=== PATIENT | male | born 1975 | race Asian ===

== ENCOUNTER 2023-12-17 21:28 | Inpatient (IN) | payer SELFPAY ==
[2023-12-17] VITALS (8 sets, daily range): BP systolic 108–122; BP diastolic 57–71; PULSE 113–134; RESP 26–48; TEMP 38.2; O2SAT 69–99
--- NOTE | 2023-12-17 21:52 | ED_ITS ---
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 He denies IV drug use recent. He denies prior vaccination against COVID or flu, denies any known diagnosis of HIV. Related Data Home oxygen amount: none Allergies Allergy/AdvReac Type Severity Reaction Status Date / Time No Known Drug Allergies Allergy Verified 12/17/23 21:47 Review of Systems Review of Systems Narrative: In severe respiratory distress, unable to give history except for nodding yes and no's, history primarily from family at bedside Patient History Social History household members: friend(s) Smoking Status: Never smoker Substance Use Type: painkillers Exam Initial Vital Signs Initial Vital Signs: Vital Signs Temperature 100.8 F H 12/17/23 21:30 Pulse Rate 134 H 12/17/23 21:30 Respiratory Rate 48 H 12/17/23 21:30 Blood Pressure 111/57 L 12/17/23 21:30 Pulse Oximetry 69 L 12/17/23 21:30 Oxygen Delivery Method Room Air 12/17/23 21:30 Respiratory distress, speaking in words only, mostly nauseous and no to questions, but alert and cooperative HENMI Head: normal to inspection Ears: external ears normal and TM's normal bilaterally Nose: external nose normal and No nasal discharge Face and sinus: face symmetric Mouth: oral mucosae normal Eyes Eyelids: eyelids normal Conjunctivae: conjunctivae normal Sclera: sclerae normal Resp Other: Patient had respiratory distress, bibasilar crackles, poor air movement, no wheezing obvious, with use of accessory musculature intercostal and suprasternal, no grunting Cardio Other: Tachycardia, regular rhythm, fast, could not hear any murmurs GI Inspection: non-distended Palpation: No guarding and No tender Skin General: no rashes or lesions noted, No jaundice and No petechiae Neuro General: patient alert and no focal motor deficits Extrem General: full ROM, no clubbing, cyanosis or edema, no pedal edema and no calf tenderness Other: No antecubital or other injection sites obvious upper extremities, no antecubital or other swelling or redness upper extremities. Lower extremities without lesions, no peripheral lower edema Psych Other: Anxious appearing in context of respiratory distress Course Course Course Narrative: Possible sepsis with cough and crackles, respiratory distress, transitioned from face mask despite SVN albuterol 2 high-flow nasal cannula humidified, hypoxia noted on ABG but not currently in respiratory acidosis, maintaining airway. Chest radiograph with right greater than left infiltrates, blood culture sent, IV ceftriaxone and azithromycin initiated for community-acquired pneumonia. HIV test negative. White blood cell count 13226 noted, lactate normal. Hemoglobin 8.9. CMP with normal renal function, LFTs not markedly elevated. BNP 1500 elevated, in context of possible sepsis. Chest radiograph reading besides the infiltrates did not mention significant fluid overload, however given BNP elevation, will limit IV fluid bolus for now. Rhino virus positive on respiratory panel, other pathogens negative. Currently normotensive, no pressors needed at this time. We will contact Hospital regarding admission to ICU on high-flow nasal cannula. Patient agreeable to being admitted. Orders Ordered: Discontinued Medications Acetaminophen (Acetaminophen 325 Mg Tablet) 650 mg PO Q6H PRN PRN Reason: Fever/Mild Pain (1-3) Albuterol (Albuterol 2.5 Mg/3 Ml Neb (Adult)) 20 mg INH NOW ONE Stop: 12/17/23 21:52 Albuterol (Albuterol 2.5 Mg/3 Ml Neb (Adult)) 2.5 mg INH [id number] PRN PRN Reason: Shortness Of Breath Albuterol/Ipratropium (Albuterol/Ipratropium 3 Ml Ampul) 3 ml INH NOW ONE Stop: 12/17/23 21:53 Last Admin: 12/17/23 22:00 Dose: 3 ml Documented By: BALDO Ceftriaxone Sodium 2,000 mg/ (Sodium Chloride) 100 mls @ 200 mls/hr IV NOW ONE Stop: 12/17/23 21:46 Last Infusion: 12/17/23 22:57 Dose: Infused Documented By: Admin: 12/17/23 22:23 Dose: 200 mls/hr Documented By: DESTINEE Azithromycin 500 mg/ Dextrose 250 mls @ 250 mls/hr IV NOW ONE Stop: 12/17/23 21:50 Last Infusion: 12/17/23 23:48 Dose: Infused Documented By: Admin: 12/17/23 22:41 Dose: 250 mls/hr Documented By: DESTINEE Sodium Chloride (Normal Saline 0.9%) 1,428.81 mls @ 476.27 mls/hr 30 ml/kg infuse over 3 hr (1428.81 ml) IV NOW ONE Stop: 12/18/23 01:27 Last Infusion: 12/18/23 01:00 Dose: Infused Documented By: Admin: 12/17/23 22:40 Dose: 476.27 mls/hr Documented By: DESTINEE Azithromycin 500 mg/ Dextrose 250 mls @ 250 mls/hr IV Q24H TATA Ceftriaxone Sodium 1,000 mg/ (Sodium Chloride) 100 mls @ 200 mls/hr IV Q24H TATA Naloxone HCl (Naloxone 0.4 Mg/Ml Vial) 0.2 mg IV Q2MIN PRN PRN Reason: Opiate Reversal Pantoprazole Sodium (Pantoprazole 40 Mg Vial) 40 mg IV DAILY TATA Reevaluation(s) Reevaluation #1: [id number], Patient has less work of breathing on high-flow humidified nasal cannula oxygen support. Right greater than left basilar infiltrate on chest x-ray, blood cultures sent, IV ceftriaxone/azithromycin given for community-acquired pneumonia coverage. Some IV fluids were initiated, BNP 1500 noted, we did not give the full 30 per kilo fluid bolus due to possible fluid overload concerns. On imaging his heart did not look particularly enlarged, no peripheral edema. White blood cell count 86149 but lactate not elevated. Patient requiring considerable respiratory support, consider admission, they would like to go home, I am very worried that he would decompensate rapidly, increased risk of recurrent or worsening respiratory distress, even . He agrees to admission, will contact hospitalist Reevaluation #2: 12/18/23 @0020. Case discussed with hospitalist Dr. Narayan, accepts patient for admission to ICU on HFNJ Vital Signs Vital signs: Vital Signs - 8 hr 12/17/23 21:30 12/17/23 21:48 12/17/23 22:00 Temperature 100.8 F H Pulse Rate 134 H 132 H 126 H Respiratory Rate 48 H 30 H 34 H Blood Pressure 111/57 L Pulse Oximetry 69 L 94 98 Oxygen Delivery Method Room Air Aerosol Mask Oxygen Flow Rate 8 12/17/23 22:20 Temperature Pulse Rate 124 H Respiratory Rate 30 H Blood Pressure Pulse Oximetry 95 Oxygen Delivery Method Oxygen Flow Rate MDM - SOB/Dyspnea Differential Diagnosis Differential diagnosis: Likely acute exacerbation of chronic obstructive airways disease, congestive heart failure, community acquired pneumonia, asthma with exacerbation, pulmonary embolism and other Lab Data 12/17/23 21:50 12/17/23 21:50 Labs: Lab Results 12/17/23 12/17/23 12/17/23 Range/Units 21:49 21:50 21:55 WBC 22.8 H (4.5-11.0) X10^3/uL RBC 3.68 L (4.5-5.9) X10^6/uL Hgb 8.9 L (13.5-17.5) g/dL Hct 28.5 L (41-53) % MCV 77.6 L (80-100) fL MCH 24.1 L (26-34) PG MCHC 31.1 (30-36) % RDW 19.7 H (11.6-14.8) % Plt Count 523 H (150-400) X10^3/uL Neut % (Auto) Not Reportable Lymph % (Auto) Not Reportable [place] % (Auto) Not Reportable Eos % (Auto) Not Reportable Baso % (Auto) Not Reportable Lymph # (Auto) Not Reportable [place] # (Auto) Not Reportable Baso # (Auto) Not Reportable Total Counted 100 Seg Neutrophils % 67.0 (38-70) % Band Neutrophils % 16.0 H (3-7) % Lymphocytes % (Manual) 13.0 L (25-45) % Monocytes % (Manual) 2.0 (2-11) % Basophils % (Manual) 1.0 (0-1) % Metamyelocytes % 1.0 H (-0) % Neutrophils # (Manual) 75730 H (7932-5587) /uL RBC Morphology See below Anisocytosis 1+ H Microcytosis 1+ H Target Cells 1+ H ABG Sample Site Right radial ABG pH 7.44 (7.35-7.45) ABG pCO2 47.6 H (35-45) mmHg ABG pO2 63 L (80-100) mmHg ABG HCO3 33 H (23-27) mmol/L ABG Total CO2 34 H (23-27) mmol/L ABG O2 Saturation 92 L (95-100) % ABG Base Excess 8.0 H (-2-3) mmol/L FiO2 100 Sodium 134 L (137-145) mmol/L Potassium 4.5 (3.4-5.1) mmol/L Chloride 98 (98-107) mmol/L Carbon Dioxide 33 H (22-32) mmol/L BUN 14 (9-20) mg/dL Creatinine 0.56 L (0.66-1.25) mg/dL Estimated GFR > 60 (>60) mL/min BUN/Creatinine Ratio 25.0 H (6-22) Glucose 115 H (70-100) mg/dL Lactate 1.7 (0.7-2.1) mmol/L Calcium 8.2 L (8.4-10.2) mg/dL Total Bilirubin 0.6 (0.2-1.3) mg/dL AST 40 (17-59) IU/L ALT 26 (<50) IU/L Alkaline Phosphatase 201 H (38-126) U/L Total Creatine Kinase 31 L (55-170) U/L Troponin I < 0.012 (0.01-0.034) ng/mL NT-Pro-B Natriuret Pep 1550 H (<125) pg/mL Total Protein 8.4 H (6.3-8.2) g/dL Albumin 3.1 L (3.5-5.0) g/dL Globulin 5.3 H (1.7-4.1) g/dL Albumin/Globulin Ratio 0.6 L (1.0-2.8) Procalcitonin 0.41 (<0.5) ng/mL Urine Color Urine Appearance Urine pH (4.5-8.0) Ur Specific [place] (1.000-1.035) Urine Protein (Negative) Urine Glucose (UA) (Negative) g/dL Urine Ketones (NEGATIVE) Urine Occult Blood (Negative) Urine Nitrate (Negative) Urine Bilirubin (NEGATIVE) Urine Urobilinogen (0.2) E.U./dL Ur Leukocyte Esterase (NEGATIVE) Urine RBC (0-5/HPF) Urine WBC (0-5/HPF) Ur Squamous Epith Cells (0-5/HPF) Urine Bacteria (None) Ur Culture Indicated? Vol Urine Centrifuged U Opiates 300ng/mL cut (Negative) Ur Oxycodone Screen (Negative) Urine Methadone Screen (Negative) Ur Barbiturates Screen (Negative) U Tricyclic Antidepress (Negative) Ur Phencyclidine Scrn (Negative) Ur Amphetamines Screen (Negative) U Methamphetamines Scrn (Negative) Ur MDMA Scrn (Ecstasy) (Negative) U Benzodiazepines Scrn (Negative) Urine Cocaine Screen (Negative) U Marijuana (THC) Screen (Negative) Urine Specific [place] (Normal) Ethyl Alcohol < 10 ( - 10) mg/dL Ur Creatinine (Normal) Chlamy pneumoniae PCR Not detected (Not Detect) Adenovirus (PCR) Not detected (Not Detect) B.parapertussis DNA PCR Not detected (Not Detecte) Coronavirus OC43 (PCR) Not detected (Not Detect) Coronavirus HKU1 (PCR) Not detected (Not Detect) Coronavirus 229E (PCR) Not detected (Not Detect) SARS-CoV-2 (PCR) Not detected (Not Detecte) Coronavirus NL63 (PCR) Not detected (Not Detect) HIV 1&2 Ab/P24 Ag 4thGn Negative (NEGATIVE) Human Metapneumovir PCR Not detected (Not Detect) Influenza Type A (PCR) Not detected (Not Detect) Influenza Type B (PCR) Not detected (Not Detect) M. pneumoniae (PCR) Not detected (Not Detect) Parainfluenza 1 (PCR) Not detected (Not Detect) Parainfluenza 2 (PCR) Not detected (Not Detect) Parainfluenza 3 (PCR) Not detected (Not Detect) Parainfluenza 4 (PCR) Not detected (Not Detect) RSV (PCR) Not detected (Not Detect) Entero/Rhino (PCR) Detected H (Not Detect) 12/17/23 12/17/23 Range/Units 22:10 22:10 WBC (4.5-11.0) X10^3/uL RBC (4.5-5.9) X10^6/uL Hgb (13.5-17.5) g/dL Hct (41-53) % MCV (80-100) fL MCH (26-34) PG MCHC (30-36) % RDW (11.6-14.8) % Plt Count (150-400) X10^3/uL Neut % (Auto) Lymph % (Auto) [place] % (Auto) Eos % (Auto) Baso % (Auto) Lymph # (Auto) [place] # (Auto) Baso # (Auto) Total Counted Seg Neutrophils % (38-70) % Band Neutrophils % (3-7) % Lymphocytes % (Manual) (25-45) % Monocytes % (Manual) (2-11) % Basophils % (Manual) (0-1) % Metamyelocytes % (-0) % Neutrophils # (Manual) (1143-8980) /uL RBC Morphology Anisocytosis Microcytosis Target Cells ABG Sample Site ABG pH (7.35-7.45) ABG pCO2 (35-45) mmHg ABG pO2 (80-100) mmHg ABG HCO3 (23-27) mmol/L ABG Total CO2 (23-27) mmol/L ABG O2 Saturation (95-100) % ABG Base Excess (-2-3) mmol/L FiO2 Sodium (137-145) mmol/L Potassium (3.4-5.1) mmol/L Chloride (98-107) mmol/L Carbon Dioxide (22-32) mmol/L BUN (9-20) mg/dL Creatinine (0.66-1.25) mg/dL Estimated GFR (>60) mL/min BUN/Creatinine Ratio (6-22) Glucose (70-100) mg/dL Lactate (0.7-2.1) mmol/L Calcium (8.4-10.2) mg/dL Total Bilirubin (0.2-1.3) mg/dL AST (17-59) IU/L ALT (<50) IU/L Alkaline Phosphatase (38-126) U/L Total Creatine Kinase (55-170) U/L Troponin I (0.01-0.034) ng/mL NT-Pro-B Natriuret Pep (<125) pg/mL Total Protein (6.3-8.2) g/dL Albumin (3.5-5.0) g/dL Globulin (1.7-4.1) g/dL Albumin/Globulin Ratio (1.0-2.8) Procalcitonin (<0.5) ng/mL Urine Color Yellow Urine Appearance Clear Urine pH 8.0 Normal (4.5-8.0) Ur Specific [place] 1.015 (1.000-1.035) Urine Protein 1+ H (Negative) Urine Glucose (UA) Negative (Negative) g/dL Urine Ketones Negative (NEGATIVE) Urine Occult Blood Negative (Negative) Urine Nitrate Negative (Negative) Urine Bilirubin Negative (NEGATIVE) Urine Urobilinogen 1.0 (0.2) E.U./dL Ur Leukocyte Esterase Negative (NEGATIVE) Urine RBC 0-1/hpf (0-5/HPF) Urine WBC None seen (0-5/HPF) Ur Squamous Epith Cells 0-1 /hpf (0-5/HPF) Urine Bacteria None seen (None) Ur Culture Indicated? Cult not indicated Vol Urine Centrifuged 10ml (spun) U Opiates 300ng/mL cut Negative (Negative) Ur Oxycodone Screen Negative (Negative) Urine Methadone Screen Negative (Negative) Ur Barbiturates Screen Negative (Negative) U Tricyclic Antidepress Negative (Negative) Ur Phencyclidine Scrn Negative (Negative) Ur Amphetamines Screen Positive H (Negative) U Methamphetamines Scrn Positive H (Negative) Ur MDMA Scrn (Ecstasy) Negative (Negative) U Benzodiazepines Scrn Negative (Negative) Urine Cocaine Screen Negative (Negative) U Marijuana (THC) Screen Negative (Negative) Urine Specific [place] Normal (Normal) Ethyl Alcohol ( - 10) mg/dL Ur Creatinine Normal (Normal) Chlamy pneumoniae PCR (Not Detect) Adenovirus (PCR) (Not Detect) B.parapertussis DNA PCR (Not Detecte) Coronavirus OC43 (PCR) (Not Detect) Coronavirus HKU1 (PCR) (Not Detect) Coronavirus 229E (PCR) (Not Detect) SARS-CoV-2 (PCR) (Not Detecte) Coronavirus NL63 (PCR) (Not Detect) HIV 1&2 Ab/P24 Ag 4thGn (NEGATIVE) Human Metapneumovir PCR (Not Detect) Influenza Type A (PCR) (Not Detect) Influenza Type B (PCR) (Not Detect) M. pneumoniae (PCR) (Not Detect) Parainfluenza 1 (PCR) (Not Detect) Parainfluenza 2 (PCR) (Not Detect) Parainfluenza 3 (PCR) (Not Detect) Parainfluenza 4 (PCR) (Not Detect) RSV (PCR) (Not Detect) Entero/Rhino (PCR) (Not Detect) ABG Data ABG results: On face mask from EMS ABG was drawn at 10 L. PH 7.443, pCO2 47.6, PO2 63, HCo3 32.5, base excess 8, 92% saturation Attestation: I personally reviewed and interpreted this ABG as follows: Interpretation: Hypoxemia without CO2 retention at this time ECG Data Attestation: I personally reviewed and interpreted this ECG as follows: Interpretation: Sinus tachycardia with rate 126, significant artifact precordial leads due to movement. With other leads there is T-wave inversion noted in leads [address] segment elevation in available leads. MDM Narrative Medical decision making narrative: Left AMA DISCHARGE, shortly after being accepted for admission from hospitalist while still in the ED. Patient strongly warned he had significant hypoxia and oxygen requirement, at increased risk for further decompensation, causing brain or other injuries, loss of independence, even . Friends at bedside were also urging patient to stay, however he persisted in his desire to be discharged off of oxygen against medical advice, shortly after having been admitted by the hospitalist. He was able to express understanding of risks of refusal, including injury and even . He did have weaning off of oxygen to room air and did desaturate but nonetheless even despite ambulation trial, still persisted in his desire to be discharged against medical advice. Critical Care Time Critical Care Time Critical Care Time: Yes Total Critical Care Time: 45 Attestation: The high probability of a clinically significant, sudden or life threatening deterioration of the [cardiopulmonary] system(s) required my full and direct attention, intervention and personal management. The aggregate critical care time was [45] minutes. This time is in addition to time spent performing reported procedures but includes the following: [x] Data Review and interpretation [x] Patient assessment and monitoring of vital signs [x] Documentation [x] Medication orders and management Discharge Plan Departure Patient Disposition: Left Against Medical Advice Clinical Impression: Pneumonia, Hypoxia, Acute respiratory distress, Rhinovirus infection
[2023-12-17] MEDS: ALBUTEROL/IPRATROPIUM 3 ML AMPUL INH (22:00)
[2023-12-17] MEDS: cefTRIAXone 2,000 MG in SODIUM CHLORIDE 0.9% 100 ML 200 MG IV (22:23)
[2023-12-17 22:26] LABS: Appearance Urine UA CLEAR; Bilirubin Urine UA NEGATIVE (NEGATIVE); Color Urine UA YELLOW; Glucose Urine UA NEGATIVE (Negative); Ketones Urine UA NEGATIVE (NEGATIVE); Leukocyte Esterase Urine UA NEGATIVE (NEGATIVE); Nitrite Urine UA NEGATIVE (Negative); Occult Blood Urine UA NEGATIVE (Negative); Protein Urine UA 1+ (Negative); Specific Gravity Urine UA 1.015 (1.000-1.035)
[2023-12-17 22:33] LABS: UR Morphine/Opiate cutoff 300 Negative (Negative); Ur Creatinine Normal (Normal); Ur Specific Gravity Normal (Normal); Urine Cocaine Negative (Negative); Urine Methamphetamines Positive (Negative); Urine pH Normal (Normal)
[2023-12-17 22:34] LABS: Urine Amphetamines Positive (Negative); Urine Barbiturates Negative (Negative); Urine Benzodiazepines Negative (Negative); Urine MDMA Negative (Negative); Urine Methadone Negative (Negative); Urine Oxycodone Negative (Negative); Urine Phencyclidine Negative (Negative); Urine Tetrahydrocannabinol Negative (Negative); Urine Tricyclic Antidepressant Negative (Negative)
--- NOTE | 2023-12-17 22:35 | DI.RAD.S_ITS ---
PROCEDURE: XR CHEST 1V INDICATIONS: sob/cough TECHNIQUE: One view of the chest was acquired. COMPARISON: None. FINDINGS: Surgical changes and devices: None. Lungs and pleura: Moderate consolidations in the mid and lower lungs, greater on the right. Possible trace pleural effusions. Mediastinum: Borderline cardiomegaly Bones and chest wall: Unremarkable IMPRESSION: Right greater than left mid and lower lung consolidations suspicious for infection. There may be superimposed edema. Possible trace effusions. Consider future imaging surveillance to assess for resolution. Borderline cardiomegaly. Dictated by: Drake Godinez M.D. on 12/17/2023 at 22:59 Approved by: Drake Godinez M.D. on 12/17/2023 at 23:00
[2023-12-17 22:37] LABS: Allen Test for ABG Passed? Yes, Passed; Blood Gas Collection Site Right Radial; Fractionated Inspired Oxygen 100; HCO3 ABG 33 mmol/L (23-27); Oxygen Saturation ABG 92 % (95-100); PCO2 ABG 47.6 mmHg (35-45); PO2 ABG 63 mmHg (80-100); TCO2 ABG 34 mmol/L (23-27); pH ABG 7.44 (7.35-7.45)
[2023-12-17 22:38] LABS: Bacteria Urine None Seen; RBC Urine 0-1/HPF (0-5/HPF); Squamous Epithelial Cell Urine 0-1 /HPF (0-5/HPF); Urine Volume 10mL (spun); WBC Urine None Seen (0-5/HPF)
[2023-12-17 22:39] LABS: Culture Indicated Urine Cult Not Indicated
[2023-12-17] MEDS: SODIUM CHLORIDE 0.9% 476.27 ML IV (22:40)
[2023-12-17] MEDS: AZITHROMYCIN 500 MG in DEXTROSE 5% IN WATER 250 ML 250 MG IV (22:41)
[2023-12-17 22:42] LABS: Ethanol (ETOH) < 10 mg/dL; Lactate (Lactic Acid) 1.7 mmol/L (0.7-2.1)
[2023-12-17 22:43] LABS: Alanine Aminotransferase 26 IU/L (<50); Albumin 3.1 g/dL (3.5-5.0); Albumin Globulin Ratio 0.6 (1.0-2.8); Alkaline Phosphatase 201 U/L (38-126); Aspartate Aminotransferase 40 IU/L (17-59); Bilirubin Total 0.6 mg/dL (0.2-1.3); Blood Urea Nitrogen 14 mg/dL (9-20); Calcium 8.2 mg/dL (8.4-10.2); Carbon Dioxide 33 mmol/L (22-32); Chloride 98 mmol/L (98-107); Creatine Kinase 31 U/L (55-170); Estimated Glomerular Filt Rate > 60 mL/min (>60); Globulin 5.3 g/dL (1.7-4.1); Glucose 115 mg/dL (70-100); HEMOLYSIS < 15 (0-50); Potassium 4.5 mmol/L (3.4-5.1); Sodium 134 mmol/L (137-145); Total Protein 8.4 g/dL (6.3-8.2)
[2023-12-17 22:52] LABS: Hematocrit 28.5 % (41-53); Hemoglobin 8.9 g/dL (13.5-17.5); Mean Corpuscular HGB Conc 31.1 % (30-36); Mean Corpuscular Hemoglobin 24.1 PG (26-34); Mean Corpuscular Volume 77.6 fL (80-100); NT-proBNP (BNP-Adult 18+) 1550 pg/mL (<125); Platelet Count 523 X10^3/uL (150-400); Red Blood Cell Count 3.68 X10^6/uL (4.5-5.9); Red Cell Distribution Width 19.7 % (11.6-14.8); White Blood Cell Count 22.8 X10^3/uL (4.5-11.0)
[2023-12-17 22:54] LABS: Add Manual Diff / Slide Review YES
[2023-12-17 22:55] LABS: Troponin I < 0.012 ng/mL (0.01-0.034)
[2023-12-17 22:59] LABS: Procalcitonin 0.41 ng/mL (<0.5)
[2023-12-17 23:15] LABS: Adenovirus Not Detected (Not Detect); B. parapertussis Not Detected (Not Detecte); Bordetella pertussis Not Detected (Not Detect); Chlamydophila pneumoniae Not Detected (Not Detect); Coronavirus 229E Not Detected (Not Detect); Coronavirus HKU1 Not Detected (Not Detect); Coronavirus NL 63 Not Detected (Not Detect); Coronavirus OC43 Not Detected (Not Detect); Human Metapneumovirus Not Detected (Not Detect); Human Rhinovirus/Enterovirus Detected (Not Detect); Influenza A Not Detected (Not Detect); Influenza B Not Detected (Not Detect); Mycoplasma pneumoniae Not Detected (Not Detect); Parainfluenza Virus 1 Not Detected (Not Detect); Parainfluenza Virus 2 Not Detected (Not Detect); Parainfluenza Virus 3 Not Detected (Not Detect); Parainfluenza Virus 4 Not Detected (Not Detect); Respiratory Syncytial Virus Not Detected (Not Detect); SARS- CoV-2 Not Detected (Not Detecte)
[2023-12-17 23:16] LABS: Anisocytosis 1+; Neutrophils Absolute Manual 18924 /uL (3000-5900); Total Cells Counted 100
[2023-12-17 23:17] LABS: Microcytosis 1+; Target Cells 1+
[2023-12-17 23:27] LABS: HIV 1 & 2 Ab/Ag 4th Gen Combo NEGATIVE (NEGATIVE)
[2023-12-18] VITALS: BP 125/54; PULSE 111; RESP 32; O2SAT 98
[2023-12-18 00:30] VITALS: BP 119/57; PULSE 109; RESP 27; O2SAT 97
[2023-12-18 00:42] VITALS: PULSE 109; RESP 24; O2SAT 97
[2023-12-18 01:00] VITALS: BP 118/63; PULSE 108; O2SAT 98
[2023-12-18 01:03] VITALS: BP 113/55; PULSE 108; O2SAT 98
[2023-12-18 01:12] VITALS: BP 108/59; PULSE 110; O2SAT 92
--- NOTE | 2023-12-18 01:14 | P.HP_ITS ---
History of Present Illness History of Present Illness Date Patient Seen: 12/18/23 Time Patient Seen: 02:00 Chief complaint: vomiting, fever Narrative: 47 y/o presented to ED in severe respiratory distress requiring highflow oxygen. Positive for rhinovirus, CXR with b/l infiltrates. Started on empiric abx in the ED, bronchodilators and then, prior to seeing him, left ED AMA. Meds Home Medications and Allergies Allergies Allergy/AdvReac Type Severity Reaction Status Date / Time No Known Drug Allergies Allergy Verified 12/17/23 21:47 Review of Systems Review of Systems Narrative: Unavailable Exam Vital Signs (past 8 hours): - 12/17/23 21:30 12/17/23 21:48 12/17/23 22:00 Temperature 100.8 F H Pulse Rate 134 H 132 H 126 H Respiratory Rate 48 H 30 H 34 H Blood Pressure 111/57 L Pulse Oximetry 69 L 94 98 Oxygen Delivery Method Room Air Aerosol Mask Oxygen Flow Rate 8 12/17/23 22:00 12/17/23 22:01 12/17/23 22:01 Temperature Pulse Rate 126 H 126 H Respiratory Rate 39 H 27 H Blood Pressure 108/58 L Pulse Oximetry 99 99 Oxygen Delivery Method Oxygen Flow Rate 12/17/23 22:20 12/17/23 22:30 12/17/23 22:30 Temperature Pulse Rate 124 H 122 H Respiratory Rate 30 H 26 H Blood Pressure 108/66 Pulse Oximetry 95 95 Oxygen Delivery Method Oxygen Flow Rate 12/17/23 23:00 12/17/23 23:00 12/17/23 23:30 Temperature Pulse Rate 116 H 113 H Respiratory Rate 28 H 32 H Blood Pressure 122/71 Pulse Oximetry 97 97 Oxygen Delivery Method Oxygen Flow Rate 12/17/23 23:30 12/18/23 00:00 12/18/23 00:00 Temperature Pulse Rate 111 H Respiratory Rate 32 H Blood Pressure 120/62 125/54 L Pulse Oximetry 98 Oxygen Delivery Method Oxygen Flow Rate 12/18/23 00:30 12/18/23 00:30 12/18/23 01:00 Temperature Pulse Rate 109 H 108 H Respiratory Rate 27 H Blood Pressure 119/57 L Pulse Oximetry 97 98 Oxygen Delivery Method Oxygen Flow Rate 12/18/23 01:00 Temperature Pulse Rate Respiratory Rate Blood Pressure 118/63 Pulse Oximetry Oxygen Delivery Method Oxygen Flow Rate Oxygen Delivery Method Aerosol Mask Oxygen Flow Rate 8 Narrative Exam Narrative: unavailable, left AMA Objective Labs 12/17/23 21:50 12/17/23 21:50 Labs: Laboratory Results - last 24 hr 12/17/23 12/17/23 12/17/23 21:49 21:50 21:55 WBC 22.8 H RBC 3.68 L Hgb 8.9 L Hct 28.5 L MCV 77.6 L MCH 24.1 L MCHC 31.1 RDW 19.7 H Plt Count 523 H Neut % (Auto) Not Reportable Lymph % (Auto) Not Reportable [place] % (Auto) Not Reportable Eos % (Auto) Not Reportable Baso % (Auto) Not Reportable Lymph # (Auto) Not Reportable [place] # (Auto) Not Reportable Baso # (Auto) Not Reportable Total Counted 100 Seg Neutrophils % 67.0 Band Neutrophils % 16.0 H Lymphocytes % (Manual) 13.0 L Monocytes % (Manual) 2.0 Basophils % (Manual) 1.0 Metamyelocytes % 1.0 H Neutrophils # (Manual) 30364 H RBC Morphology See below Anisocytosis 1+ H Microcytosis 1+ H Target Cells 1+ H ABG Sample Site Right radial ABG pH 7.44 ABG pCO2 47.6 H ABG pO2 63 L ABG HCO3 33 H ABG Total CO2 34 H ABG O2 Saturation 92 L ABG Base Excess 8.0 H FiO2 100 Sodium 134 L Potassium 4.5 Chloride 98 Carbon Dioxide 33 H BUN 14 Creatinine 0.56 L Estimated GFR > 60 BUN/Creatinine Ratio 25.0 H Glucose 115 H Lactate 1.7 Calcium 8.2 L Total Bilirubin 0.6 AST 40 ALT 26 Alkaline Phosphatase 201 H Total Creatine Kinase 31 L Troponin I < 0.012 NT-Pro-B Natriuret Pep 1550 H Total Protein 8.4 H Albumin 3.1 L Globulin 5.3 H Albumin/Globulin Ratio 0.6 L Procalcitonin 0.41 Urine Color Urine Appearance Urine pH Ur Specific [place] Urine Protein Urine Glucose (UA) Urine Ketones Urine Occult Blood Urine Nitrate Urine Bilirubin Urine Urobilinogen Ur Leukocyte Esterase Urine RBC Urine WBC Ur Squamous Epith Cells Urine Bacteria Ur Culture Indicated? Vol Urine Centrifuged U Opiates 300ng/mL cut Ur Oxycodone Screen Urine Methadone Screen Ur Barbiturates Screen U Tricyclic Antidepress Ur Phencyclidine Scrn Ur Amphetamines Screen U Methamphetamines Scrn Ur MDMA Scrn (Ecstasy) U Benzodiazepines Scrn Urine Cocaine Screen U Marijuana (THC) Screen Urine Specific [place] Ethyl Alcohol < 10 Ur Creatinine Chlamy pneumoniae PCR Not detected Adenovirus (PCR) Not detected B.parapertussis DNA PCR Not detected Coronavirus OC43 (PCR) Not detected Coronavirus HKU1 (PCR) Not detected Coronavirus 229E (PCR) Not detected SARS-CoV-2 (PCR) Not detected Coronavirus NL63 (PCR) Not detected HIV 1&2 Ab/P24 Ag 4thGn Negative Human Metapneumovir PCR Not detected Influenza Type A (PCR) Not detected Influenza Type B (PCR) Not detected M. pneumoniae (PCR) Not detected Parainfluenza 1 (PCR) Not detected Parainfluenza 2 (PCR) Not detected Parainfluenza 3 (PCR) Not detected Parainfluenza 4 (PCR) Not detected RSV (PCR) Not detected Entero/Rhino (PCR) Detected H 12/17/23 12/17/23 22:10 22:10 WBC RBC Hgb Hct MCV MCH MCHC RDW Plt Count Neut % (Auto) Lymph % (Auto) [place] % (Auto) Eos % (Auto) Baso % (Auto) Lymph # (Auto) [place] # (Auto) Baso # (Auto) Total Counted Seg Neutrophils % Band Neutrophils % Lymphocytes % (Manual) Monocytes % (Manual) Basophils % (Manual) Metamyelocytes % Neutrophils # (Manual) RBC Morphology Anisocytosis Microcytosis Target Cells ABG Sample Site ABG pH ABG pCO2 ABG pO2 ABG HCO3 ABG Total CO2 ABG O2 Saturation ABG Base Excess FiO2 Sodium Potassium Chloride Carbon Dioxide BUN Creatinine Estimated GFR BUN/Creatinine Ratio Glucose Lactate Calcium Total Bilirubin AST ALT Alkaline Phosphatase Total Creatine Kinase Troponin I NT-Pro-B Natriuret Pep Total Protein Albumin Globulin Albumin/Globulin Ratio Procalcitonin Urine Color Yellow Urine Appearance Clear Urine pH 8.0 Normal Ur Specific [place] 1.015 Urine Protein 1+ H Urine Glucose (UA) Negative Urine Ketones Negative Urine Occult Blood Negative Urine Nitrate Negative Urine Bilirubin Negative Urine Urobilinogen 1.0 Ur Leukocyte Esterase Negative Urine RBC 0-1/hpf Urine WBC None seen Ur Squamous Epith Cells 0-1 /hpf Urine Bacteria None seen Ur Culture Indicated? Cult not indicated Vol Urine Centrifuged 10ml (spun) U Opiates 300ng/mL cut Negative Ur Oxycodone Screen Negative Urine Methadone Screen Negative Ur Barbiturates Screen Negative U Tricyclic Antidepress Negative Ur Phencyclidine Scrn Negative Ur Amphetamines Screen Positive H U Methamphetamines Scrn Positive H Ur MDMA Scrn (Ecstasy) Negative U Benzodiazepines Scrn Negative Urine Cocaine Screen Negative U Marijuana (THC) Screen Negative Urine Specific [place] Normal Ethyl Alcohol Ur Creatinine Normal Chlamy pneumoniae PCR Adenovirus (PCR) B.parapertussis DNA PCR Coronavirus OC43 (PCR) Coronavirus HKU1 (PCR) Coronavirus 229E (PCR) SARS-CoV-2 (PCR) Coronavirus NL63 (PCR) HIV 1&2 Ab/P24 Ag 4thGn Human Metapneumovir PCR Influenza Type A (PCR) Influenza Type B (PCR) M. pneumoniae (PCR) Parainfluenza 1 (PCR) Parainfluenza 2 (PCR) Parainfluenza 3 (PCR) Parainfluenza 4 (PCR) RSV (PCR) Entero/Rhino (PCR) Assessment & Plan Assessment and plan (1) Rhinovirus infection: Status: Acute (2) Pneumonia: Status: Acute (3) Acute hypoxemic respiratory failure: Status: Acute Assessment & Plan narrative: Acute Hypoxemic Respiratory Failure / Rhinoviral PNA / suspected bacterial PNA - ICU admission on highflow oxygen - bronchodilators - empiric abx Patient left AMA, from the ED. He was found to be competent to make informed decisions by ED staff.
--- NOTE | 2023-12-18 01:17 | PC.NURSE ---
Pt was told that he should be admitted for tx, he stated that he did not want to stay, Dr Lindo spoke with pt and he agreed to stay. Pt was accepted by the hositalist for admission, at 0105 pt was told he had room up in and that we were going to move him to his room, he stated that did not want admitted, spoke with patient again, pt able to verbalize that she is aware that he will be putting himself at risk for injury, even but he is willing to take that risk. At this time the patient has been taken off of heated high flow O2, O2 is 81-82% on room air, RR is 30, HR is 112. Pt has been off of O2 for approximately 10 min.
== END 2023-12-18 01:49 | disposition left against medical advice (07) | DRG 193 ==
LOC: ED 21:49 → AC 12-18 00:25 → ICU 12-18 01:10
PROVIDERS: Admitting Provider Internal Medicine; Emergency Provider Emergency Medicine; Referring Provider Emergency Medicine; Visit Provider Internal Medicine
DX: J12.89 Other viral pneumonia (principal); J96.01 Acute respiratory failure with hypoxia; B97.89 Other viral agents as the cause of diseases classified elsewhere; Z53.29 Procedure and treatment not carried out because of patient's decision for other reasons
CPT/HCPCS: 36415; 36600; 71045; 80053; 80305; 80320; 81001; 82550; 82805; 83605; 83880; 84145; 84484; 85007; 85025; 87040; 87070; 87205; 87389; 87633; 93005; 93010; 96365; 96367; 96368; 99284; 99291; J0696

== ENCOUNTER 2023-12-18 21:21 | Inpatient (IN) | payer SELFPAY ==
[2023-12-18] VITALS (9 sets, daily range): BP systolic 94–107; BP diastolic 51–60; PULSE 106–127; RESP 28–41; TEMP 36.8–37.3; O2SAT 77–100; BMI 17.4
--- NOTE | 2023-12-18 21:36 | DI.RAD.S_ITS ---
PROCEDURE: XR CHEST 1V INDICATIONS: suspected sepsis TECHNIQUE: One view of the chest was acquired. COMPARISON: [facility], CR, XR CHEST 1V, 12/17/2023, 22:22. FINDINGS: Surgical changes and devices: None. Lungs and pleura: Lower lobe predominant bilateral opacities. Mediastinum: Mediastinal contours appear normal. Heart size is enlarged. Bones and chest wall: No suspicious bony lesions. Overlying soft tissues appear unremarkable. IMPRESSION: Lower lobe predominant bilateral opacities, either infection or aspiration. Findings are unchanged from prior. Dictated by: Chaz Trivedi M.D. on 12/18/2023 at 21:59 Approved by: Chaz Trivedi M.D. on 12/18/2023 at 22:00
--- NOTE | 2023-12-18 21:36 | ED.SOB ---
HPI - SOB/Dyspnea General Chief Complaint: Shortness of Breath/Dyspnea Stated Complaint: has pnemonia/here T-1/worse Time Seen by Provider: 12/18/23 21:36 Source: patient and family Mode of arrival: Wheelchair Limitations: no limitations History of Present Illness HPI Narrative: 47-year-old male returns with shortness of breath after leaving against medical advice early this morning, known wbuwl-[id number]-czhi-left pneumonia by chest x-ray, with rhinovirus positive respiratory screen, methamphetamine use, significant hypoxia, but decided to leave after hospitalist has accepted the patient for admission. He has continued cough and shortness of breath, now agreeable to admission. There is some chest discomfort with cough. Arrived again POV, found again to be significantly hypoxic at triage Related Data Allergies Allergy/AdvReac Type Severity Reaction Status Date / Time No Known Drug Allergies Allergy Verified 12/17/23 21:47 Review of Systems Review of Systems Narrative: As per HPI Patient History Social History household members: friend(s) Smoking Status: Never smoker Substance Use Type: opiates, painkillers and methamphetamine Exam Narrative Exam Narrative: Respiratory distress similar presentation to this morning, severe hypoxia noted on exam, with tachypnea Initial Vital Signs Initial Vital Signs: Vital Signs Temperature 99.2 F 12/18/23 21:24 Pulse Rate 127 H 12/18/23 21:24 Respiratory Rate 34 H 12/18/23 21:24 Blood Pressure 106/54 L 12/18/23 21:24 Pulse Oximetry 77 L 12/18/23 21:24 Oxygen Delivery Method Room Air 12/18/23 21:24 Patient in respiratory distress, significantly low oxygen 77% room air noted, tachypnea noted, tachycardia noted, afebrile Const Other: Cooperative with treatment and assessment and plan, recently left against medical advice in context of pneumonia and hypoxia Chest Other: Intercostal retractions noted, no obvious traumatic changes Resp Other: Respiratory distress, crackles bibasilar, intercostal retractions and suprasternal retractions, no audible wheeze, poor air movement, similar to exam yesterday on presentation Cardio Other: Tachycardia, regular, no audible murmur Extrem Other: Cachectic extremities, no lower extremity edema, no cords or tenderness. Psych Other: Anxious appearing in context of respiratory distress Course Course Course Narrative: Bibasilar right greater than left pneumonia with rhino virus diagnosis last night and hypoxia on high-flow nasal cannula oxygen, was accepted last night for admission than left against medical advice while still in the emergency department, despite repeated efforts to have him stay for admission. Presents again with shortness of breath, 77% room air saturation, crackles bilaterally, no significant wheezes, we will send sepsis labs for comparison, interval repeat chest x-ray, interval repeat ABG. Respiratory panel is not need to be repeated was positive for rhino virus yesterday. Antibiotics ceftriaxone and azithromycin were given yesterday within the last 24 hours. Anticipate consultation with hospitalist again for admission to ICU. Yesterday he is responded well to high-flow nasal cannula oxygen. We will initiate RT consult, likely trial of high-flow nasal cannula oxygen again. Decision to Admit Date: 12/18/23 Decision to Admit time: 21:42 Orders Ordered: Acetaminophen (Acetaminophen 325 Mg Tablet) 650 mg PO Q6H PRN PRN Reason: Fever/Mild Pain (1-3) Albuterol (Albuterol 2.5 Mg/3 Ml Neb (Adult)) 2.5 mg INH [id number] PRN PRN Reason: Shortness Of Breath Last Admin: 12/19/23 01:19 Dose: 2.5 mg Documented By: OLEG Albuterol/Ipratropium (Albuterol/Ipratropium 3 Ml Ampul) 3 ml INH [id number] TATA Last Admin: 12/19/23 01:18 Dose: 3 ml Documented By: OLEG Alprazolam (Alprazolam 0.25 Mg Tablet) 0.5 mg PO Q6H PRN PRN Reason: Anxiety Last Admin: 12/19/23 00:34 Dose: 0.5 mg Documented By: Azithromycin 500 mg/ Dextrose 250 mls @ 250 mls/hr IV Q24H [facility] Last Infusion: 12/19/23 01:30 Dose: Infused Documented By: Admin: 12/19/23 00:30 Dose: 250 mls/hr Documented By: Ceftriaxone Sodium 1,000 mg/ (Sodium Chloride) 100 mls @ 200 mls/hr IV Q24H [facility] Last Infusion: 12/19/23 01:02 Dose: Infused Documented By: Admin: 12/19/23 00:31 Dose: 200 mls/hr Documented By: Naloxone HCl (Naloxone 0.4 Mg/Ml Vial) 0.2 mg IV Q2MIN PRN PRN Reason: Opiate Reversal Ondansetron HCl (Ondansetron 4 Mg/2 Ml Inj) 4 mg IV NOW PRN PRN Reason: Nausea And Vomiting Ondansetron HCl (Ondansetron 4 Mg Odt) 4 mg SL NOW PRN PRN Reason: Nausea And Vomiting Pantoprazole Sodium (Pantoprazole 40 Mg Vial) 40 mg IV DAILY TATA Discontinued Medications Albuterol (Albuterol 2.5 Mg/3 Ml Neb (Adult)) 2.5 mg INH NOW ONE Stop: 12/18/23 22:10 Last Admin: 12/18/23 22:13 Dose: 2.5 mg Documented By: OLEG Albuterol/Ipratropium (Albuterol/Ipratropium 3 Ml Ampul) 3 ml INH NOW ONE Stop: 12/18/23 22:10 Last Admin: 12/18/23 22:13 Dose: 3 ml Documented By: OLEG Sodium Chloride (Normal Saline 0.9%) 1,000 mls @ 1,000 mls/hr IV BOLUS ONE Stop: 12/18/23 22:35 Last Infusion: 12/18/23 23:13 Dose: Infused Documented By: Admin: 12/18/23 21:51 Dose: 1,000 mls/hr Documented By: DESTINEE Methylprednisolone (Methylprednisolone 125 Mg/2 Ml Vial) 125 mg IV NOW ONE Stop: 12/18/23 22:55 Last Admin: 12/18/23 23:12 Dose: 125 mg Documented By: DESTINEE Reevaluation(s) Reevaluation #1: White blood cell count 36041 slightly decreased from yesterday, renal function adequate, chest x-ray shows similar right and left basilar infiltrates. ABG on non-rebreather shows pH 7.83, pCO2 50, PaO2 148, bicarbonate 29, base excess 5. He has not requiring high-flow nasal cannula at this time, but seems to be improved on non-rebreather mask at this time. Antibiotics ceftriaxone and azithromycin were given less than 24 hours ago when he left Against Medical Advice early this morning. Readmit to ICU with hypoxia and respiratory support with known bibasilar pneumonia, and recent rhino virus positive swab. We will contact hospitalist. Patient seems motivated and amenable to admission Reevaluation #2: RT suggested albuterol, no wheezing obvious, poor air movement, post albuterol there was some wheezing, IV Solu-Medrol additionally given. Patient admitted as planned Consultations Consultation #1: Case discussed with hospitalist Dr. Navarro, who is familiar with patient from Against Medical Advice discharge less than 24 hours ago, will accept patient on flow oxygen mask to ICU Time: 22:51 Vital Signs Vital signs: Vital Signs - 8 hr 12/18/23 22:19 12/18/23 22:30 12/18/23 22:30 Pulse Rate 106 H 115 H Respiratory Rate 28 H 31 H Blood Pressure 100/58 L Pulse Oximetry 100 90 L Oxygen Delivery Method Non -Rebreather Oxygen Flow Rate 13 12/18/23 22:39 Pulse Rate Respiratory Rate Blood Pressure Pulse Oximetry 95 Oxygen Delivery Method Oximask Oxygen Flow Rate 13 MDM - SOB/Dyspnea Differential Diagnosis Differential diagnosis: Likely acute exacerbation of chronic obstructive airways disease and community acquired pneumonia Lab Data Attestation: I reviewed the patient's lab results. 12/19/23 04:05 12/19/23 04:05 Labs: Lab Results 12/18/23 12/18/23 Range/Units 21:40 21:45 WBC 19.5 H (4.5-11.0) X10^3/uL RBC 3.41 L (4.5-5.9) X10^6/uL Hgb 8.2 L (13.5-17.5) g/dL Hct 26.1 L (41-53) % MCV 76.6 L (80-100) fL MCH 24.1 L (26-34) PG MCHC 31.4 (30-36) % RDW 19.8 H (11.6-14.8) % Plt Count 499 H (150-400) X10^3/uL Neut % (Auto) 82.0 H (50-75) % Lymph % (Auto) 10.5 L (25-40) % [place] % (Auto) 7.4 (3-14) % Eos % (Auto) 0.0 L (2-4) % Baso % (Auto) 0.1 (0-2) % Neut # (Auto) 00157 H (0309-8543) /uL Lymph # (Auto) 2100 (5298-0514) /uL [place] # (Auto) 1400 H (0-900) /uL Eos # (Auto) 0 (0-450) /uL Baso # (Auto) 0 (0-100) /uL PT 17.1 H (9.4-12.5) SECONDS INR 1.5 H (0.9-1.3) APTT 38 H (25.1-36.5) SECONDS ABG Sample Site Right radial ABG pH 7.38 (7.35-7.45) ABG pCO2 50.0 H (35-45) mmHg ABG pO2 148 H (80-100) mmHg ABG HCO3 30 H (23-27) mmol/L ABG Total CO2 31 H (23-27) mmol/L ABG O2 Saturation 99 (95-100) % ABG Base Excess 5.0 H (-2-3) mmol/L FiO2 80 Sodium 130 L (137-145) mmol/L Potassium 3.6 (3.4-5.1) mmol/L Chloride 97 L (98-107) mmol/L Carbon Dioxide 30 (22-32) mmol/L BUN 9 (9-20) mg/dL Creatinine 0.52 L (0.66-1.25) mg/dL Estimated GFR > 60 (>60) mL/min BUN/Creatinine Ratio 17.3 (6-22) Glucose 137 H (70-100) mg/dL Lactate 1.2 (0.7-2.1) mmol/L Calcium 7.7 L (8.4-10.2) mg/dL Total Bilirubin 0.6 (0.2-1.3) mg/dL AST 24 (17-59) IU/L ALT 21 (<50) IU/L Alkaline Phosphatase 170 H (38-126) U/L Total Protein 7.9 (6.3-8.2) g/dL Albumin 2.8 L (3.5-5.0) g/dL Globulin 5.1 H (1.7-4.1) g/dL Albumin/Globulin Ratio 0.5 L (1.0-2.8) Lipase 24 (23-300) U/L Procalcitonin 0.41 (<0.5) ng/mL ECG Data Attestation: I personally reviewed and interpreted this ECG as follows: Interpretation: Sinus tachycardia with rate 113, no ectopy obvious, some T-wave inversion lead 3, not obvious in other contiguous inferior leads, T-wave inversion V3 and V4 noted. Similar to prior EKG yesterday. Treatment and disposition Code Status and discussions:: Full code status Critical Care Time Critical Care Time Critical Care Time: Yes Total Critical Care Time: 35 Attestation: The high probability of a clinically significant, sudden or life threatening deterioration of the [cardiopulmonary] system(s) required my full and direct attention, intervention and personal management. The aggregate critical care time was [35] minutes. This time is in addition to time spent performing reported procedures but includes the following: [x] Data Review and interpretation [x] Patient assessment and monitoring of vital signs [x] Documentation [x] Medication orders and management Discharge Plan Departure Patient Disposition: Admitted As Inpatient Clinical Impression: Pneumonia, Hypoxia, Acute respiratory distress, Rhinovirus infection, Acute hypoxemic respiratory failure Admit Date/Time: 12/18/23 22:53 Admit Provider: Jose Soriano
[2023-12-18] MEDS: SODIUM CHLORIDE 0.9% 1,000 ML 1000 ML IV (21:51)
[2023-12-18 21:58] LABS: Add Manual Diff / Slide Review NO; Basophils Absolute Auto 0 /uL (0-100); Basophils Percent Auto 0.1 % (0-2); Eosinophils Absolute Auto 0 /uL (0-450); Hematocrit 26.1 % (41-53); Hemoglobin 8.2 g/dL (13.5-17.5); Lymphocytes Absolute Auto 2100 /uL (1100-4500); Lymphocytes Percent Auto 10.5 % (25-40); Mean Corpuscular HGB Conc 31.4 % (30-36); Mean Corpuscular Hemoglobin 24.1 PG (26-34); Mean Corpuscular Volume 76.6 fL (80-100); Monocytes Absolute Auto 1400 /uL (0-900); Monocytes Percent Auto 7.4 % (3-14); Neutrophils Absolute Auto 16000 /uL (1500-7000); Platelet Count 499 X10^3/uL (150-400); Red Blood Cell Count 3.41 X10^6/uL (4.5-5.9); Red Cell Distribution Width 19.8 % (11.6-14.8); White Blood Cell Count 19.5 X10^3/uL (4.5-11.0)
[2023-12-18 22:04] LABS: INR 1.5 (0.9-1.3); Prothrombin Time 17.1 SECONDS (9.4-12.5)
[2023-12-18 22:06] LABS: PTT Partial Thromboplastin Tim 38 SECONDS (25.1-36.5)
[2023-12-18 22:07] LABS: Alanine Aminotransferase 21 IU/L (<50); Albumin 2.8 g/dL (3.5-5.0); Albumin Globulin Ratio 0.5 (1.0-2.8); Alkaline Phosphatase 170 U/L (38-126); Aspartate Aminotransferase 24 IU/L (17-59); BUN Creatinine Ratio 17.3 (6-22); Bilirubin Total 0.6 mg/dL (0.2-1.3); Blood Urea Nitrogen 9 mg/dL (9-20); Calcium 7.7 mg/dL (8.4-10.2); Carbon Dioxide 30 mmol/L (22-32); Chloride 97 mmol/L (98-107); Estimated Glomerular Filt Rate > 60 mL/min (>60); Globulin 5.1 g/dL (1.7-4.1); Glucose 137 mg/dL (70-100); HEMOLYSIS < 15 (0-50); Lactate (Lactic Acid) 1.2 mmol/L (0.7-2.1); Lipase 24 U/L (23-300); Potassium 3.6 mmol/L (3.4-5.1); Sodium 130 mmol/L (137-145); Total Protein 7.9 g/dL (6.3-8.2)
[2023-12-18] MEDS: ALBUTEROL 2.5 MG/3 ML NEB (ADULT) INH (22:13)
[2023-12-18] MEDS: ALBUTEROL/IPRATROPIUM 3 ML AMPUL INH (22:13)
[2023-12-18 22:23] LABS: Procalcitonin 0.41 ng/mL (<0.5)
[2023-12-18 22:36] LABS: HCO3 ABG 30 mmol/L (23-27); Oxygen Saturation ABG 99 % (95-100); PO2 ABG 148 mmHg (80-100); TCO2 ABG 31 mmol/L (23-27); pH ABG 7.38 (7.35-7.45)
[2023-12-18 22:37] LABS: Allen Test for ABG Passed? Yes, Passed; Fractionated Inspired Oxygen 80
[2023-12-18 22:38] LABS: Blood Gas Collection Site Right Radial
[2023-12-18] MEDS: methylPREDNISolone 125 MG/2 ML VIAL IV (23:12)
--- NOTE | 2023-12-18 23:25 | P.HP_ITS ---
History of Present Illness History of Present Illness Date Patient Seen: 12/19/23 Chief complaint: has pnemonia/here T-1/worse Narrative: 47 y/o presented to ED 24 h ago in severe respiratory distress requiring high flow oxygen. Tested positive for rhinovirus, CXR with b/l infiltrates. Started on empiric abx in the ED, bronchodilators and then, prior to me seeing him, left ED AMA. He is back 24 hours later with same symptoms. Now willing to be admitted. [facility] Social History household members: friend(s) Smoking Status: Never smoker Meds Home Medications and Allergies Allergies Allergy/AdvReac Type Severity Reaction Status Date / Time No Known Drug Allergies Allergy Verified 12/17/23 21:47 Review of Systems Constitutional Comments: generalized weakness Cardiovascular Comments: w/o chest pain Respiratory Comments: severe shortness of breath Gastrointestinal Comments: w/o abdominal pain Exam Vital Signs (past 8 hours): - 12/18/23 21:24 12/18/23 21:46 12/18/23 21:51 Temperature 99.2 F Pulse Rate 127 H 121 H Respiratory Rate 34 H 30 H Blood Pressure 106/54 L 107/60 Pulse Oximetry 77 L 98 Oxygen Delivery Method Room Air Oxygen Flow Rate 12/18/23 21:51 12/18/23 22:00 12/18/23 22:00 Temperature Pulse Rate 118 H 114 H Respiratory Rate 32 H 30 H Blood Pressure 102/59 L Pulse Oximetry 99 100 Oxygen Delivery Method Oxygen Flow Rate 12/18/23 22:19 12/18/23 22:30 12/18/23 22:30 Temperature Pulse Rate 106 H 115 H Respiratory Rate 28 H 31 H Blood Pressure 100/58 L Pulse Oximetry 100 90 L Oxygen Delivery Method Non -Rebreather Oxygen Flow Rate 13 12/18/23 22:39 12/18/23 23:00 12/18/23 23:00 Temperature Pulse Rate 114 H Respiratory Rate 41 H Blood Pressure 96/51 L Pulse Oximetry 95 94 Oxygen Delivery Method Oximask Oxygen Flow Rate 13 Oxygen Delivery Method Oximask Oxygen Flow Rate 13 Const Other: Appears malnourished, in no distress, sitting in bed with oxygen mask on HENMT Other: temporal wasting, sunken eyes Resp Other: b/l crackles, not wheezy Cardio Other: RRR Psych Other: lucid, decisional flat affect, depressed mood Objective Labs 12/19/23 04:05 12/19/23 04:05 Labs: Laboratory Results - last 24 hr 12/18/23 12/18/23 21:40 21:45 WBC 19.5 H RBC 3.41 L Hgb 8.2 L Hct 26.1 L MCV 76.6 L MCH 24.1 L MCHC 31.4 RDW 19.8 H Plt Count 499 H Neut % (Auto) 82.0 H Lymph % (Auto) 10.5 L [place] % (Auto) 7.4 Eos % (Auto) 0.0 L Baso % (Auto) 0.1 Neut # (Auto) 62839 H Lymph # (Auto) 2100 [place] # (Auto) 1400 H Eos # (Auto) 0 Baso # (Auto) 0 PT 17.1 H INR 1.5 H APTT 38 H ABG Sample Site Right radial ABG pH 7.38 ABG pCO2 50.0 H ABG pO2 148 H ABG HCO3 30 H ABG Total CO2 31 H ABG O2 Saturation 99 ABG Base Excess 5.0 H FiO2 80 Sodium 130 L Potassium 3.6 Chloride 97 L Carbon Dioxide 30 BUN 9 Creatinine 0.52 L Estimated GFR > 60 BUN/Creatinine Ratio 17.3 Glucose 137 H Lactate 1.2 Calcium 7.7 L Total Bilirubin 0.6 AST 24 ALT 21 Alkaline Phosphatase 170 H Total Protein 7.9 Albumin 2.8 L Globulin 5.1 H Albumin/Globulin Ratio 0.5 L Lipase 24 Procalcitonin 0.41 Assessment & Plan Assessment and plan (1) Rhinovirus infection: Status: Acute (2) Acute hypoxemic respiratory failure: Status: Acute (3) Pneumonia, viral: Status: Acute (4) Methamphetamine abuse: Status: Acute Assessment & Plan narrative: 8 Acute Hypoxemic Respiratory Failure / Rhinoviral PNA / suspected bacterial PNA - ICU admission on highflow oxygen / mask - RT - bronchodilators - empiric abx - Zithromax, Rocephin Methamphetamine Abuse - counselling - w/o fluid overload, elevated BNP - cardiomyopathy? - echocardiogram if available over the weekend, otherwise outpt workup Anemia, microcytic - iron studies, stool guaiac, PPI for GI prophylaxis DVT prophylaxis - SCDs Patient seen via audio-video communication device with auscultation abilities with nurse at bedside. Time Spent With Patient Time with patient: 50 to 69 minutes with 50% spent counseling/coordinating care
[2023-12-19] VITALS (24 sets, daily range): BP systolic 91–119; BP diastolic 57–78; PULSE 87–110; RESP 19–40; TEMP 36.1–36.7; O2SAT 91–100
[2023-12-19] MEDS: AZITHROMYCIN 500 MG in DEXTROSE 5% IN WATER 250 ML 250 MG IV ×2 (00:30→22:46)
[2023-12-19] MEDS: cefTRIAXone 1,000 MG in SODIUM CHLORIDE 0.9% 100 ML 200 MG IV ×2 (00:31→23:55)
[2023-12-19] MEDS: ALPRAZolam 0.25 MG TABLET 0.5 MG PO ×2 (00:34→17:40)
[2023-12-19] MEDS: ALBUTEROL/IPRATROPIUM 3 ML AMPUL INH (01:18)
[2023-12-19] MEDS: ALBUTEROL 2.5 MG/3 ML NEB (ADULT) INH (01:19)
[2023-12-19 04:41] LABS: MRSA (Nasal) PCR NOT DETECTED (Not Detect)
[2023-12-19 04:52] LABS: Add Manual Diff / Slide Review NO; Basophils Absolute Auto 0 /uL (0-100); Basophils Percent Auto 0.1 % (0-2); Eosinophils Absolute Auto 0 /uL (0-450); Hematocrit 25.8 % (41-53); Lymphocytes Absolute Auto 1100 /uL (1100-4500); Lymphocytes Percent Auto 9.8 % (25-40); Mean Corpuscular HGB Conc 31.1 % (30-36); Monocytes Absolute Auto 300 /uL (0-900); Monocytes Percent Auto 2.6 % (3-14); Neutrophils Absolute Auto 9400 /uL (1500-7000); Neutrophils Percent Auto 87.5 % (50-75); Platelet Count 384 X10^3/uL (150-400); Red Blood Cell Count 3.35 X10^6/uL (4.5-5.9); White Blood Cell Count 10.7 X10^3/uL (4.5-11.0)
[2023-12-19 05:08] LABS: HEMOLYSIS < 15 (0-50); Iron 19 ug/dL (49-181)
[2023-12-19 05:10] LABS: BUN Creatinine Ratio 15.6 (6-22); Blood Urea Nitrogen 7 mg/dL (9-20); Calcium 7.7 mg/dL (8.4-10.2); Carbon Dioxide 30 mmol/L (22-32); Chloride 98 mmol/L (98-107); Estimated Glomerular Filt Rate > 60 mL/min (>60); Glucose 173 mg/dL (70-100); HEMOLYSIS < 15 (0-50); Potassium 3.6 mmol/L (3.4-5.1); Sodium 131 mmol/L (137-145)
[2023-12-19 05:19] LABS: Percent Iron Saturation 11 % (20-50); Total Iron Binding Capacity 174 ug/dL (261-462); Transferrin 111 mg/dL (206-381)
--- NOTE | 2023-12-19 05:42 | PC.NURSE ---
Patient arrived from ED around 2330. AOx4, restless, paranoid, tachycardia, hypotension, afebrile, tolerating 13L oxymask. Patient cooperated with all of the admission assessment except for the skin assessment, patient would not allow RN to assess under pants or take his socks off. Patient was adamant that a visitor come to give him his wallet and other belongings. RN went through belongings. Patient became increasingly more agitated around 0200 and stood up out of bed and removed oxygen. RN to bedside to patient was very protective of his pants and claimed he needed to use the urinal and needed privacy. Patient was helped back into bed and foil containing drugs, a pipe, and a sr[employer] system administrator fell from his pants. Drug paraphernalia was confiscated and given to coordinator. Patient once in bed, became somnolent. Patient protecting airway well and vitals were stable, MD Navarro made aware of possible substance use. Patient woke up around 5am again to urinate, pants and socks were removed, in which one more foil of drugs were confiscated. Behavior Contract filled out per hospital policy, patient refused to sign contract. Coordinator made aware. Belongings removed from room per policy and stored in locked locker, patients wallet locked in safe. Patient educated on [facility] Policy, and made aware that he will have no visitors for the remainder of his stay, and that his belongings were locked and secured. Patient cursing and yelling at staff, and then promptly fell back asleep. Call light at bedside. Oxygen titrated to 2L Oxymask while sleeping.
--- NOTE | 2023-12-19 08:47 | DI.ECHO.S_ITS ---
[facility] : : [address] : : [place] : : [id number] : : Phone: [phone] Echocardiogram Report + + :Name: RAINER FARIAS Study Date: 12/19/2023 Height: 64 in : :[facility] ReadingLocation: Weight: 109 lb : : Gender: Male BSA: 1.5 m2 : :: 1975 Age: 47 yrs BP: 112/71 mmHg: :Reason For Study: Cardiomyopathy : : Performed By: Tea Beck : :Referring: TUCKER CLARK : + + Interpretation Summary The left ventricle is normal in size and wall thickness. The ejection fraction is estimated to be 55-60%. No obvious wall motion abnormalities. The right ventricular systolic pressure is estimated to be at least 26 mmHg based on an estimated right atrial pressure of 3 mm Hg. The interventricular septum is flattened, consistent with a right ventricular volume overload condition. The left atrium is moderately dilated. The right atrium is severely dilated. The aortic root is normal size. There is a trivial pericardial effusion noted. Procedure: A two-dimensional transthoracic echocardiogram with color flow and Doppler was performed. The study quality was technically good. There is no prior echocardiogram noted for this patient. The heart rate ranged between 95- 101 bpm during the study. Left Ventricle: The left ventricle is normal in size and wall thickness. The ejection fraction is estimated to be 55-60%. No obvious wall motion abnormalities. The interventricular septum is flattened, consistent with a right ventricular volume overload condition. Diastolic function could not be accurately assessed due to tachycardia. Right Ventricle: The right ventricle is severely dilated. Right ventricular systolic function is severely reduced. Atria: The left atrium is moderately dilated. The right atrium is severely dilated. The interatrial septum grossly appears intact with no obvious evidence for an atrial septal defect. Mitral Valve: The mitral valve is grossly normal. There is no mitral regurgitation noted. Aortic Valve: The aortic valve is trileaflet. The aortic valve opens well. No aortic regurgitation is present. Tricuspid Valve: The tricuspid valve leaflets are thin and pliable. There is a trace or physiologic amount of tricuspid regurgitation. The right ventricular systolic pressure is estimated to be at least 26 mmHg based on an estimated right atrial pressure of 3 mm Hg. Pulmonic Valve: The pulmonic valve is not well visualized. Great Vessels: The aortic root is normal size. The ascending aorta could not be visualized. The aortic arch could not be visualized. The IVC is of normal diameter and collapses greater than 50% with a sniff. This suggests a low right atrial pressure of 3 mm Hg. Pericardium/ Pleura There is a trivial pericardial effusion noted. There is no pleural effusion. MMode/2D Measurements & Calculations LVIDd: 5.3 cm Ao root diam: 3.6 cm LVIDs: 3.5 cm FS: 33.4 % IVSd: 0.74 cm LVPWd: 0.79 cm LV brownlee. diameter/BSA (cm/m^2): 3.5 LV sys. diameter/BSA (cm/m^2): 2.3 LA A2 area: 24.5 cm2 RA long axis: 5.4 cm LA A4 area: 18.7 cm2 RA area: 25.5 cm2 LA length (vol): 6.0 cm RA vol: 102.8 ml LA vol: 65.2 ml RA : 68.0 ml/m2 LA vol index: 43.1 ml/m2 IVC diam: 1.8 cm RVD1 (basal): 4.2 cm Doppler Measurements & Calculations Ao V2 max: 124.8 cm/sec LVOT Max Marcellus: 90.8 cm/sec Ao V2 mean: 88.5 cm/sec LV V1 max P.3 mmHg Ao max P.2 mmHg LV V1 VTI: 18.5 cm Ao mean P.4 mmHg sev ratio: 0.76 Ao V2 VTI: 24.3 cm MV E max marcellus: 86.0 cm/sec TR max marcellus: 239.0 cm/sec MV A max marcellus: 99.5 cm/sec TR max P.9 mmHg MV E/A: 0.86 MV dec time: 0.22 sec Reading Physician:12:35 PM
[2023-12-19] MEDS: NALOXONE 0.4 MG/ML VIAL 0.2 MG IV (12:43)
[2023-12-19 12:45] LABS: HCO3 VBG 35 mmol/L (24-28); PCO2 VBG 53.8 mmHg (45-50); PO2 VBG 32 mmHg (35-45); pH VBG 7.42 (7.33-7.43)
[2023-12-19 12:46] LABS: Fractionated Inspired Oxygen 48; Oxygen Saturation VBG 62 % (70-75); Total CO2 VBG 37 mmol/L (24-29)
--- NOTE | 2023-12-19 13:22 | CM.DANOTE ---
DCP Assessment Note Pt is a 47yo male, resident of [place], presented to the ED on 12/17/2023 for shortness of breath, left AMA and later returned on 12/19/23 for the same symptoms. Pt was admitted on 12/19/23 for pneumonia, rhinovirus and shortness of breath. PCP: None identified in EMR Payor: [employer] and [employer] Reviewed chart and discussed pt with care team for pt's medical status and initial discharge needs. Per nursing staff, pt is an AMA risk due to agitated behavior in the ED the previous day. DCP team attempted multiple times to meet with pt at bedside. Per nursing care team, pt was agitated and possibly withdrawing. During second attempt, nursing staff and respiratory therapy were at bedside about to intubate due to pt's respiratory failure. No other medical or demographic information could be confirmed at this time due to pt's status. Plan: CM team will plan to follow clinical course closely for assessment of need and coordination of discharge plan. OUMAR Ross Discharge Planning/Care Management CM Discharge Assessment Start: 12/19/23 13:13 Freq: Status: Active Protocol: Document 12/19/23 13:14 MW (Rec: 12/19/23 13:16 MW [id number]) Discharge Planning Assessment Assigned Plater Helper SHILO Crowder Advance Directives? No History Provided By Patient Prior Living Arrangements Mobile home Household Members friend(s) Discharge Plan Home Please Provide Date Initial DC 12/19/23 Assessment Was Performed Next Review Type Continued Stay Review
--- NOTE | 2023-12-19 16:19 | PM.PN.1 ---
Subjective Subjective Interval history: Patient apparently caught using fentanyl late last night. He is very somnolent and can barely wake up to speak this morning. ABG shows mild hypercapnea and normal pH. Narcan given and patient improved. He notes wanting to leave AMA, but then falls back asleep. Exam Vital Signs (past 8 hours): - 12/19/23 09:00 12/19/23 09:00 12/19/23 09:35 Temperature Pulse Rate 102 H 104 H Respiratory Rate 29 H 40 H Blood Pressure 112/71 Pulse Oximetry 94 92 Oxygen Flow Rate 12/19/23 09:47 12/19/23 10:00 12/19/23 11:00 Temperature Pulse Rate 98 H 102 H 95 H Respiratory Rate 35 H 24 22 Blood Pressure 119/78 115/78 Pulse Oximetry 94 99 99 Oxygen Flow Rate 5 5 12/19/23 12:00 12/19/23 13:00 12/19/23 14:00 Temperature 97.0 F L Pulse Rate 93 H 107 H 108 H Respiratory Rate 23 19 20 Blood Pressure 117/73 110/63 105/60 Pulse Oximetry 100 98 Oxygen Flow Rate 5 7 7 12/19/23 15:00 12/19/23 16:00 Temperature 97.0 F L Pulse Rate 110 H 102 H Respiratory Rate 24 22 Blood Pressure 107/60 113/68 Pulse Oximetry 93 99 Oxygen Flow Rate 7 7 Oxygen Delivery Method Oximask Oxygen Flow Rate 7 Const Other: Appears malnourished, in no distress, sitting in bed with oxygen mask on, very somnolent HENMT Other: temporal wasting, sunken eyes Resp Other: b/l crackles, not wheezy Cardio Other: RRR Psych Other: flat affect, depressed mood Objective Labs 12/19/23 04:05 12/19/23 04:05 Labs: Laboratory Results - last 24 hr 12/18/23 12/18/23 12/19/23 21:40 21:45 00:00 WBC 19.5 H RBC 3.41 L Hgb 8.2 L Hct 26.1 L MCV 76.6 L MCH 24.1 L MCHC 31.4 RDW 19.8 H Plt Count 499 H Neut % (Auto) 82.0 H Lymph % (Auto) 10.5 L [place] % (Auto) 7.4 Eos % (Auto) 0.0 L Baso % (Auto) 0.1 Neut # (Auto) 81250 H Lymph # (Auto) 2100 [place] # (Auto) 1400 H Eos # (Auto) 0 Baso # (Auto) 0 PT 17.1 H INR 1.5 H APTT 38 H ABG Sample Site Right radial ABG pH 7.38 ABG pCO2 50.0 H ABG pO2 148 H ABG HCO3 30 H ABG Total CO2 31 H ABG O2 Saturation 99 ABG Base Excess 5.0 H VBG pH VBG pCO2 VBG pO2 VBG HCO3 VBG Total CO2 VBG O2 Saturation VBG Base Excess FiO2 80 Sodium 130 L Potassium 3.6 Chloride 97 L Carbon Dioxide 30 BUN 9 Creatinine 0.52 L Estimated GFR > 60 BUN/Creatinine Ratio 17.3 Glucose 137 H Lactate 1.2 Calcium 7.7 L Iron TIBC % Saturation Transferrin Total Bilirubin 0.6 AST 24 ALT 21 Alkaline Phosphatase 170 H Total Protein 7.9 Albumin 2.8 L Globulin 5.1 H Albumin/Globulin Ratio 0.5 L Lipase 24 Procalcitonin 0.41 Nasal Screen MRSA (PCR) Not detected 12/19/23 12/19/23 04:05 12:25 WBC 10.7 RBC 3.35 L Hgb 8.0 L Hct 25.8 L MCV 77.0 L MCH 24.0 L MCHC 31.1 RDW 20.0 H Plt Count 384 Neut % (Auto) 87.5 H Lymph % (Auto) 9.8 L [place] % (Auto) 2.6 L Eos % (Auto) 0.0 L Baso % (Auto) 0.1 Neut # (Auto) 9400 H Lymph # (Auto) 1100 [place] # (Auto) 300 Eos # (Auto) 0 Baso # (Auto) 0 PT INR APTT ABG Sample Site ABG pH ABG pCO2 ABG pO2 ABG HCO3 ABG Total CO2 ABG O2 Saturation ABG Base Excess VBG pH 7.42 VBG pCO2 53.8 H VBG pO2 32 L VBG HCO3 35 H VBG Total CO2 37 H VBG O2 Saturation 62 L VBG Base Excess 11.0 H FiO2 48 Sodium 131 L Potassium 3.6 Chloride 98 Carbon Dioxide 30 BUN 7 L Creatinine 0.45 L Estimated GFR > 60 BUN/Creatinine Ratio 15.6 Glucose 173 H Lactate Calcium 7.7 L Iron 19 L TIBC 174 L % Saturation 11 L Transferrin 111 L Total Bilirubin AST ALT Alkaline Phosphatase Total Protein Albumin Globulin Albumin/Globulin Ratio Lipase Procalcitonin Nasal Screen MRSA (PCR) [facility] [place] Social History household members: friend(s) Smoking Status: Never smoker Assessment & Plan Assessment & Plan narrative: Acute Hypoxemic Respiratory Failure / Rhinoviral PNA / suspected bacterial PNA - downgraded from ICU, now on 5L NC - RT - bronchodilators - empiric abx - Zithromax, Rocephin - echo shows EF 55-60%, RVSP 26, flattened septum consistent with overload condition - obtain CTA chest to rule out PE given flattened septum on echo Methamphetamine and fentanyl abuse - counseling - w/o fluid overload, elevated BNP - echo without cardiomyopathy Anemia, microcytic - iron studies, stool guaiac, PPI for GI prophylaxis DVT prophylaxis - SCDs Dispo: AMA risk. 2 days to improve hypoxia and PNA. Quality VTE Deep Vein Thrombosis/Pulmonary Embolism Present on Admission: No
--- NOTE | 2023-12-19 16:32 | DI.CT.S_ITS ---
PROCEDURE: CT ANGIO CHEST PE PROTOCOL INDICATIONS: flattened septum on echo, r/o PE TECHNIQUE: After the administration of intravenous contrast, 2 mm thick sections acquired from the pulmonary apices to the posterior costophrenic angles. 3-dimensional maximum intensity projection (MIP) coronal and sagittal reformats were then acquired through the thorax. For radiation dose reduction, the following was used: automated exposure control, adjustment of mA and/or kV according to patient size. COMPARISON: [facility], CR, XR CHEST 1V, 12/18/2023, 21:40. FINDINGS: Image quality: Diagnostic. Pulmonary arteries: Pulmonary arteries are normal in size, and demonstrate no intraluminal filling defects to suggest central pulmonary embolism. Lower Neck: No enlarged lymph nodes. Thyroid: No thyroid nodules which require sonographic follow up, per consensus guidelines. Axillae: No enlarged lymph nodes. Chest Wall: Unremarkable. Bones: Unremarkable. Lungs and Pleura: Low bilateral lower lobe consolidation with bronchiectasis and hyperinflation. Tree-in-bud pattern noted anteriorly with relative sparing of the upper lungs Heart: Heart size is enlarged. Thoracic Vessels: No aortic aneurysm. Mediastinum and Jacquie: No enlarged lymph nodes. Esophagus: No wall thickening. No hiatal hernia. Upper Abdomen: Visualized upper abdomen solid organs and bowel loops appear normal. IMPRESSION: No evidence of pulmonary embolism, aortic dissection or aneurysm. Bilateral dependent consolidation with infiltrate associated with a bronchiectasis. Additional interstitial tree-in-bud pattern noted anteriorly with relative sparing of Approved by: Rodolfo López M.D. on 12/19/2023 at 17:25
--- NOTE | 2023-12-19 16:56 | PC.NURSE ---
Day shift: pt eyes closed, lying in bed, eyes closed. Pt able to answer cognition questions correctly, garbled, slow speech. Pt drooling excessively. Able to tolerate breakfast. States, I wanna go home. Eyes closed, sitting upright, groaning, spitting on bed and lap. O2 saturation 92% on 4L oxymask. Pt removed O2, oxygen saturation dropped, pt declining oximask and breathing treatment. Oxygen saturation 68%, pt educated on importance of wearing oxygen. Pt agreed to NC. 7L NC O2 88%. New orders received, see MAR. Pt closed eyes, head tilted to side, stating, I just want to go home. Pt spoke to friends on phone. Other VSS. Pt titrated down to 2L NC, 97%. Pt transported to PR at approximately 1648. Back at 1705. Pt requesting to leave AMA. Provider notified. Pt assisted to BR. Upon arrival back to bed, pt states, I don't know what to do. I'll stick with you. Provider notified. Pt in bed, eating dinner. Bed locked, alarm set, curtain open, call light within reach. VSS. Care ongoing, will continue to monitor.
[2023-12-19] MEDS: ONDANSETRON 4 MG ODT SL (17:13)
[2023-12-19] MEDS: ACETAMINOPHEN 325 MG TABLET 650 MG PO (22:03)
[2023-12-20] VITALS (11 sets, daily range): BP systolic 103–129; BP diastolic 62–79; PULSE 76–115; RESP 19–36; TEMP 35.7–36.9; O2SAT 90–98
[2023-12-20] MEDS: ALPRAZolam 0.25 MG TABLET 0.5 MG PO (05:09)
[2023-12-20] MEDS: ACETAMINOPHEN 325 MG TABLET 650 MG PO (05:09)
--- NOTE | 2023-12-20 08:40 | PC.NURSE ---
Addendum entered by Meri Marques R.N. 12/20/23 19:09: at 1900, pt reporting, I'm leaving now. I'm going home. Pt friend in [place]. Pt educated on why he is still admitted, his hypoxia, oxygen needs, and antibiotic treatment need. Pt reports, I get it, I'm still going home. Provider notified. IV's d/c'd, telemetry removed. Pt friend assisting pt in dressing. Pt wheeled in w/c by friend at approximately 1914 after signing against medical advice paperwork. Original Note: Day shift: Pt in and out of sleep. O2 94% on 2L NC. Attempted to titrate O2 off. Pt desaturated to 75% on RA. Instructed pt to take deep breaths, pt stated, I don't want to. Oxygen back to 94% on 2L NC. Care ongoing, will continue to monitor.
--- NOTE | 2023-12-20 11:12 | CM.DPNOTE ---
Addendum entered by SHILO Gomez 12/20/23 15:35: Per Dr. Gamboa, pt withdrawing hard at this time from fentanyl use. Pt shaky and provider plans to add medication for pain/withdrawal management. ROOM SERVICE ASSOCIATE will continue to hold ROOM SERVICE ASSOCIATE/DCP until pt more appropriate. SL Original Note: DCP note ROOM SERVICE ASSOCIATE reviewed EMR. Per RN report, pt was caught using fentanyl overnight Thursday night. Per RN, pt labile, agitated, and was refusing breathing treatment. Pt echo was okay, currently on 1ltr O2. Pt threatened to leave AMA twice but when presented with the papers, decided to stay. Per RN, due to pt's agitation/active withdrawal, may not be appropriate for ROOM SERVICE ASSOCIATE intervention/DCP conversation at this time. Plan: CM team will plan to follow clinical course closely for assessment of need and coordination of discharge plan. SHILO Gomez
[2023-12-20] MEDS: OXYCODONE IR 5 MG TABLET 15 MG PO (16:03)
[2023-12-20] MEDS: cloNIDine 0.1 MG TABLET PO (16:05)
[2023-12-20] MEDS: ONDANSETRON 4 MG/2 ML INJ IV (16:05)
--- NOTE | 2023-12-20 16:09 | PM.PN.1 ---
Subjective Subjective Interval history: Patient notes he is severely withdrawing from opiates and feels like I'm going to . He is anxious, shaking and diaphoretic. Says he smokes 1g of fentanyl per day. Exam Vital Signs (past 8 hours): - 12/20/23 09:00 12/20/23 09:08 12/20/23 10:08 Temperature Pulse Rate Respiratory Rate Blood Pressure Pulse Oximetry 95 94 Oxygen Delivery Method Nasal Cannula Nasal Cannula Oxygen Flow Rate 1 1 12/20/23 13:03 12/20/23 16:05 Temperature 98.5 F Pulse Rate 109 H 115 H Respiratory Rate 26 H Blood Pressure 129/71 103/66 Pulse Oximetry 95 Oxygen Delivery Method Oxygen Flow Rate 1 Oxygen Delivery Method Nasal Cannula Oxygen Flow Rate 1 Const Other: Appears malnourished, anxious, diaphoretic, tremulous HENMT Other: temporal wasting, sunken eyes Resp Other: b/l crackles, not wheezy Cardio Other: tachycardic Psych Other: flat affect, depressed mood Objective Labs 12/19/23 04:05 12/19/23 04:05 [facility] [place] Social History household members: friend(s) Smoking Status: Never smoker Assessment & Plan Assessment & Plan narrative: Acute Hypoxemic Respiratory Failure / Rhinoviral PNA / suspected bacterial PNA - now on 1L NC - RT - bronchodilators - empiric abx - changed azithro to doxy after starting methadone, Rocephin - echo shows EF 55-60%, RVSP 26, flattened septum consistent with overload condition - CTA chest without PE Methamphetamine and fentanyl abuse, now actively withdrawing - smokes 1g of fentanyl per day - start treatment for opioid withdrawal with methadone, scheduled oxycodone and clonidine - tele - FACILITY MAINTENANCE WORKER consult - echo without cardiomyopathy Anemia, microcytic - iron studies, stool guaiac, PPI for GI prophylaxis DVT prophylaxis - SCDs Dispo: AMA risk. 2 days to improve hypoxia and PNA and treat opioid withdrawal. Quality VTE Deep Vein Thrombosis/Pulmonary Embolism Present on Admission: No
--- NOTE | 2023-12-20 19:06 | PM.DS.1 ---
History of Present Illness History of Present Illness Chief complaint: has pnemonia/here T-1/worse Narrative: 47 y/o presented to ED 24 h ago in severe respiratory distress requiring high flow oxygen. Tested positive for rhinovirus, CXR with b/l infiltrates. Started on empiric abx in the ED, bronchodilators and then, prior to me seeing him, left ED AMA. He is back 24 hours later with same symptoms. Now willing to be admitted. Discharge Providers Provider Date of admission: 12/18/23 22:53 Discharge Date: 12/20/23 Consults: 12/18/23 21:33 Consult to GROUP RESERVATIONS COORDINATOR - Final Assembler Boat Stat Comment: Discharge provider: Jared Gamboa DO Summary Hospital Course Discharge Diagnosis: Acute Hypoxemic Respiratory Failure / Rhinoviral PNA / suspected bacterial PNA - now on 1L NC - RT - bronchodilators - empiric abx - changed azithro to doxy after starting methadone, Rocephin - echo shows EF 55-60%, RVSP 26, flattened septum consistent with overload condition - CTA chest without PE Methamphetamine and fentanyl abuse, now actively withdrawing - smokes 1g of fentanyl per day - start treatment for opioid withdrawal with methadone, scheduled oxycodone and clonidine - tele - GROUP RESERVATIONS COORDINATOR consult - echo without cardiomyopathy Anemia, microcytic - iron studies, stool guaiac, PPI for GI prophylaxis Hospital Course: Admitted for respiratory distress with SOB, cough, hypoxia and recent active fentanyl use. Found to be rhinovirus positive and have possible bilateral pneumonia. Initially required HFNC but was weaned down to 1L. Then began actively withdrawing from fentanyl and was given scheduled oxy, clonidine and methadone. He left AMA after 3 days. Oral antibiotics sent to his pharmacy. Exam Vital Signs (past 8 hours): - 12/20/23 13:03 12/20/23 16:05 12/20/23 17:00 Temperature 98.5 F 98.2 F Pulse Rate 109 H 115 H 105 H Respiratory Rate 26 H 26 H Blood Pressure 129/71 103/66 103/66 Pulse Oximetry 95 97 Oxygen Flow Rate 1 1 Oxygen Delivery Method Nasal Cannula Oxygen Flow Rate 1 Const Other: Appears malnourished, anxious, diaphoretic, tremulous HENMT Other: temporal wasting, sunken eyes Resp Other: b/l crackles, not wheezy Cardio Other: tachycardic Psych Other: flat affect, depressed mood Objective Labs 12/19/23 04:05 12/19/23 04:05 PFSH Social History household members: friend(s) Smoking Status: Never smoker Discharge Plan Discharge Plan Patient Disposition: Left Against Medical Advice Discharge orders & Medications Prescriptions: New amoxicillin-pot clavulanate 875-125 mg tablet 1 tab PO BID 4 Days Qty: 8 0RF Visit Report/Discharge Packet Stand Alone Forms: Patient Portal/API, Stroke Signs & Symptoms Quality VTE Deep Vein Thrombosis/Pulmonary Embolism Present on Admission: No
--- NOTE | 2023-12-22 15:06 | PC.NURSE ---
ILLEGAL SUBSTANCE Illegal substances located in coordinator safe were disposed of as per pharmacist instructions. Witnessed by Rosanne BARROS.
== END 2023-12-20 19:14 | disposition left against medical advice (07) | DRG 193 ==
LOC: ED 22:52 → AC 22:54 → ICU 23:29
PROVIDERS: Admitting Provider Internal Medicine; Emergency Provider Emergency Medicine; Referring Provider Emergency Medicine; Visit Provider Internal Medicine
DX: J12.89 Other viral pneumonia (principal); J96.01 Acute respiratory failure with hypoxia; F11.13 Opioid abuse with withdrawal; B97.89 Other viral agents as the cause of diseases classified elsewhere; F15.10 Other stimulant abuse, uncomplicated; J15.9 Unspecified bacterial pneumonia; D50.9 Iron deficiency anemia, unspecified; Z53.29 Procedure and treatment not carried out because of patient's decision for other reasons
CPT/HCPCS: 36415; 36600; 71045; 71275; 80048; 80053; 82805; 83540; 83550; 83605; 83690; 84145; 85025; 85610; 85730; 87797; 93005; 93306; 94640; 94762; 96374; 99284; 99291; J0696; J2310; J2405; J2919; J7613; Q9967

== ENCOUNTER 2024-04-15 08:37 | Inpatient (IN) | payer SELFPAY ==
[2023-12-18 23:01] VITALS: BMI 17.4
[2024-04-15] VITALS (11 sets, daily range): BP systolic 93–121; BP diastolic 59–79; PULSE 92–109; RESP 16–29; TEMP 36.6–37.2; O2SAT 87–97; BMI 15.1; BMI 14.3
--- NOTE | 2024-04-15 08:44 | DI.RAD.S_ITS ---
PROCEDURE: XR CHEST 1V INDICATIONS: chest pain TECHNIQUE: One view of the chest was acquired. COMPARISON: [facility], CT, CT ANGIO CHEST PE PROTOCOL, 12/19/2023, 16:56. [facility], CR, XR CHEST 1V, 12/18/2023, 21:40. FINDINGS: Surgical changes and devices: None. Lungs and pleura: Bibasilar consolidation is similar to previous. No pleural effusions or pneumothorax. Mediastinum: Mediastinal contours appear normal. Heart size is enlarged. Bones and chest wall: No suspicious bony lesions. Overlying soft tissues appear unremarkable. IMPRESSION: Bibasilar consolidation, similar to previous. Unchanged cardiomegaly. Dictated by: Luis A Valdes M.D. on 04/15/2024 at 9:11 Approved by: Luis A Valdes M.D. on 04/15/2024 at 9:18
[2024-04-15 08:57] LABS: Add Manual Diff / Slide Review NO; Basophils Absolute Auto 100 /uL (0-100); Basophils Percent Auto 0.6 % (0-2); Eosinophils Absolute Auto 200 /uL (0-450); Eosinophils Percent Auto 1.3 % (2-4); Hemoglobin 9.2 g/dL (13.5-17.5); Lymphocytes Absolute Auto 2400 /uL (1100-4500); Mean Corpuscular HGB Conc 30.6 % (30-36); Mean Corpuscular Hemoglobin 22.8 PG (26-34); Mean Corpuscular Volume 74.5 fL (80-100); Monocytes Absolute Auto 1000 /uL (0-900); Monocytes Percent Auto 7.3 % (3-14); Neutrophils Absolute Auto 9800 /uL (1500-7000); Neutrophils Percent Auto 72.8 % (50-75); Platelet Count 523 X10^3/uL (150-400); Red Blood Cell Count 4.02 X10^6/uL (4.5-5.9); Red Cell Distribution Width 19.6 % (11.6-14.8); White Blood Cell Count 13.4 X10^3/uL (4.5-11.0)
--- NOTE | 2024-04-15 08:57 | EKG_ITS ---
[place] [address] [address] [place] [id number] Test Date: 2024-04-15 Pat Name: Uday Garcia Department: [facility] Room: Gender: Male Bookkeeping Manager: ÁNGEL : 1975 Requested By: Order Number: [id number] Reading MD: Jovan Rodriguez MD Measurements Intervals [place] Rate: 101 P: 73 WI: 146 QRS: 115 QRSD: 98 T: 29 QT: 382 QTc: 495 Interpretive Statements Sinus tachycardia Right ventricular hypertrophy with repolarization abnormality Nonspecific T wave abnormality Electronically Signed On 04-15-2024 12:55:02 PDT by Jovan Rodriguez MD
[2024-04-15] MEDS: SODIUM CHLORIDE 0.9% 1,000 ML 150 ML IV (08:59)
--- NOTE | 2024-04-15 09:05 | ED_ITS ---
HPI - SOB/Dyspnea General Chief Complaint: Shortness of Breath/Dyspnea Stated Complaint: Low oxygen, high heart rate Time Seen by Provider: 04/15/24 08:44 History of Present Illness HPI Narrative: 48-year-old male with history of heroin smoking use, prior episodes of pneumonia, recent diagnosis of pneumonia, was prescribed amoxicillin, took a for a few days, has not been taking any antibiotics in recent days. Was seen [facility] thinking about having a consultation and was noted to have trouble breathing, referred here for further evaluation, possible pneumonia. Related Data Home Medications Medication Instructions Recorded Confirmed No Known Home Medications 04/15/24 04/15/24 Allergies Allergy/AdvReac Type Severity Reaction Status Date / Time No Known Drug Allergies Allergy Verified 12/17/23 21:47 Review of Systems Review of Systems Narrative: see HPI Patient History Social History household members: friend(s) Smoking Status: Smoker, status unknown alcohol intake: current Smoking Status: Never smoker alcohol intake frequency: holidays/special occasions only Substance Use Type: opiates, painkillers and methamphetamine Exam Narrative Exam Narrative: GENERAL: Well-developed patient, in mild distress. Cachectic appearing HEAD: Atraumatic. Normocephalic. EYES: Pupils equal round and reactive. Extraocular motions intact. No scleral icterus. No injection or drainage. ENT: Nose without bleeding, purulent drainage. Throat without erythema, tonsillar hypertrophy or exudate. Airway patent. NECK: Trachea midline. Non tender CARDIOVASCULAR: Fast heart rate regular rhythm, no obvious murmur. RESPIRATORY: Bibasilar crackles, some intercostal and suprasternal retractions. Speaking in full sentences however. No wheezes. GASTROINTESTINAL: Abdomen soft, non-tender, nondistended. EXTREMITIES: No edema or joint tenderness. BACK: Nontender without deformity or crepitance. No flank tenderness. NEURO: AOx3. Nonfocal neuro exam pattern SKIN: No rash or erythema of visible areas Initial Vital Signs Initial Vital Signs: Vital Signs Pulse Rate 107 H 04/15/24 08:42 Respiratory Rate 22 04/15/24 08:42 Pulse Oximetry 89 L 04/15/24 08:42 Oxygen Delivery Method Nasal Cannula 04/15/24 08:42 Course Orders Ordered: ED Orders 04/15/24 12:20 Urine Drug Screen, Rapid Stat Acetaminophen (Acetaminophen 325 Mg Tablet) 650 mg PO Q6H PRN PRN Reason: Fever/Mild Pain (1-3) Al Hydrox/Mg Hydrox/Simethicone (Mag Hydrox/Alum/Simeth 30 Ml Udc) 30 ml PO Q6HR PRN PRN Reason: Dyspepsia Heparin Sodium (Porcine) (Heparin 5,000 Unit/Ml Vial) 5,000 unit SUBCUT BID TATA Sodium Chloride (Normal Saline 0.9%) 1,000 mls @ 100 mls/hr IV CONT TATA Last Admin: 04/15/24 19:41 Dose: 100 mls/hr Documented By: Infusion: 04/15/24 19:41 Dose: Infused Documented By: Admin: 04/15/24 11:42 Dose: 100 mls/hr Documented By: JESSE Ceftriaxone Sodium 2,000 mg/ (Sodium Chloride) 100 mls @ 200 mls/hr IV Q24H TATA Doxycycline Hyclate 100 mg/ (Sodium Chloride) 100 mls @ 100 mls/hr IV Q12H TATA Methadone HCl (Methadone 10 Mg Tablet) 10 mg PO TID TATA Last Admin: 04/15/24 15:21 Dose: 10 mg Documented By: GURDEEP Naloxone HCl (Naloxone 0.4 Mg/Ml Vial) 0.2 mg IV Q2MIN PRN PRN Reason: Opiate Reversal Discontinued Medications Albuterol (Albuterol 2.5 Mg/3 Ml Neb (Adult)) 2.5 mg INH NOW ONE Stop: 04/15/24 09:07 Last Admin: 04/15/24 09:07 Dose: 2.5 mg Documented By: CARROLL Azithromycin (Azithromycin 250 Mg Tablet) 500 mg PO NOW ONE Stop: 04/15/24 09:15 Last Admin: 04/15/24 09:31 Dose: 500 mg Documented By: CATALINO Sodium Chloride (Normal Saline 0.9%) 1,000 mls @ 150 mls/hr IV CONT TATA Last Admin: 04/15/24 08:59 Dose: 150 mls/hr Documented By: CATALINO Ceftriaxone Sodium 1,000 mg/ (Sodium Chloride) 100 mls @ 200 mls/hr IV NOW ONE Stop: 04/15/24 09:15 Last Infusion: 04/15/24 10:37 Dose: Infused Documented By: Admin: 04/15/24 09:31 Dose: 200 mls/hr Documented By: CATALINO Azithromycin 500 mg/ Dextrose 250 mls @ 250 mls/hr IV Q24H TATA Vital Signs Vital signs: Vital Signs - 8 hr 04/15/24 08:42 04/15/24 08:44 04/15/24 08:44 Temperature 98.9 F Pulse Rate 107 H 109 H Respiratory Rate 22 20 Blood Pressure 111/72 111/72 Pulse Oximetry 89 L 87 L Oxygen Delivery Method Nasal Cannula Room Air Oxygen Flow Rate 04/15/24 08:44 04/15/24 09:00 04/15/24 09:00 Temperature Pulse Rate 102 H 102 H Respiratory Rate 19 21 Blood Pressure 110/67 Pulse Oximetry 94 96 Oxygen Delivery Method Nasal Cannula Nasal Cannula Oxygen Flow Rate 2 2 04/15/24 09:08 04/15/24 09:30 04/15/24 09:30 Temperature Pulse Rate 99 H 93 H Respiratory Rate 20 20 Blood Pressure 121/79 Pulse Oximetry 94 95 Oxygen Delivery Method Nasal Cannula Room Air Oxygen Flow Rate 04/15/24 10:00 04/15/24 10:00 Temperature Pulse Rate 93 H Respiratory Rate 29 H Blood Pressure 114/68 Pulse Oximetry 93 Oxygen Delivery Method Nasal Cannula Oxygen Flow Rate MDM - SOB/Dyspnea Lab Data Attestation: I reviewed the patient's lab results. 04/15/24 08:47 04/15/24 08:47 Labs: Lab Results 04/15/24 04/15/24 04/15/24 Range/Units 08:47 08:49 09:20 WBC 13.4 H (4.5-11.0) X10^3/uL RBC 4.02 L (4.5-5.9) X10^6/uL Hgb 9.2 L (13.5-17.5) g/dL Hct 30.0 L (41-53) % MCV 74.5 L (80-100) fL MCH 22.8 L (26-34) PG MCHC 30.6 (30-36) % RDW 19.6 H (11.6-14.8) % Plt Count 523 H (150-400) X10^3/uL Neut % (Auto) 72.8 (50-75) % Lymph % (Auto) 18.0 L (25-40) % [place] % (Auto) 7.3 (3-14) % Eos % (Auto) 1.3 L (2-4) % Baso % (Auto) 0.6 (0-2) % Neut # (Auto) 9800 H (4975-2593) /uL Lymph # (Auto) 2400 (8368-3397) /uL [place] # (Auto) 1000 H (0-900) /uL Eos # (Auto) 200 (0-450) /uL Baso # (Auto) 100 (0-100) /uL Sodium 132 L (137-145) mmol/L Potassium 3.7 (3.4-5.1) mmol/L Chloride 97 L (98-107) mmol/L Carbon Dioxide 33 H (22-32) mmol/L BUN 12 (9-20) mg/dL Creatinine 0.57 L (0.66-1.25) mg/dL Estimated GFR > 60 (>60) mL/min BUN/Creatinine Ratio 21.1 (6-22) Glucose 99 (70-100) mg/dL Lactate 1.0 (0.7-2.1) mmol/L Calcium 8.0 L (8.4-10.2) mg/dL Total Bilirubin 0.3 (0.2-1.3) mg/dL AST 21 (17-59) IU/L ALT 13 (<50) IU/L Alkaline Phosphatase 147 H (38-126) U/L Total Creatine Kinase 48 L (55-170) U/L Troponin I < 0.012 (0.01-0.034) ng/mL Total Protein 8.4 H (6.3-8.2) g/dL Albumin 2.9 L (3.5-5.0) g/dL Globulin 5.5 H (1.7-4.1) g/dL Albumin/Globulin Ratio 0.5 L (1.0-2.8) Lipase 18 L (23-300) U/L Ethyl Alcohol < 10 ( - 10) mg/dL Chlamy pneumoniae PCR Not detected (Not Detect) Adenovirus (PCR) Not detected (Not Detect) B.parapertussis DNA PCR Not detected (Not Detecte) Coronavirus OC43 (PCR) Not detected (Not Detect) Coronavirus HKU1 (PCR) Not detected (Not Detect) Coronavirus 229E (PCR) Not detected (Not Detect) SARS-CoV-2 (PCR) Not detected (Not Detecte) Coronavirus NL63 (PCR) Not detected (Not Detect) Human Metapneumovir PCR Not detected (Not Detect) Influenza Type A (PCR) Not detected (Not Detect) Influenza Type B (PCR) Not detected (Not Detect) M. pneumoniae (PCR) Not detected (Not Detect) Parainfluenza 1 (PCR) Not detected (Not Detect) Parainfluenza 2 (PCR) Not detected (Not Detect) Parainfluenza 3 (PCR) Not detected (Not Detect) Parainfluenza 4 (PCR) Not detected (Not Detect) RSV (PCR) Not detected (Not Detect) Entero/Rhino (PCR) Not detected (Not Detect) Imaging Data Chest x-ray: Radiologist's Impression: [address] [address] XRay Report Signed Patient: Uday Garcia MR#: [id number] : 1975 Acct:[id number] Age/Sex: 48 / M Date of Service: 04/15/24 Loc: ED Accession Number: [id number] Procedure: XR chest 1V Ordering Provider: Breezy Lindo MD PROCEDURE: XR CHEST 1V INDICATIONS: chest pain TECHNIQUE: One view of the chest was acquired. COMPARISON: [facility], CT, CT ANGIO CHEST PE PROTOCOL, 12/19/2023, 16:56. [facility], CR, XR CHEST 1V, 12/18/2023, 21:40. FINDINGS: Surgical changes and devices: None. Lungs and pleura: Bibasilar consolidation is similar to previous. No pleural effusions or pneumothorax. Mediastinum: Mediastinal contours appear normal. Heart size is enlarged. Bones and chest wall: No suspicious bony lesions. Overlying soft tissues appear unremarkable. IMPRESSION: Bibasilar consolidation, similar to previous. Unchanged cardiomegaly. Dictated by: Luis A Valdes M.D. on 04/15/2024 at 9:11 Approved by: Luis A Valdes M.D. on 04/15/2024 at 9:18 ECG Data Attestation: I personally reviewed and interpreted this ECG as follows: Interpretation: Sinus tachycardia with rate 101, no obvious ST segment elevation or depression changes. T-wave inversion the 1 through 4. MD 146, QRS 98, QTC 495. MDM Narrative Medical decision making narrative: 48-year-old male with history of heroin smoking use, prior pneumonias, recent partial course amoxicillin for pneumonia per patient report, not taking antibiotics, increased shortness of breath. Hypoxia 87% noted arrival, crackles on exam. SVN initiated. Chest x-ray, EKG, labs pending. Lactate sent. No lower extremity edema. DDx suspected pneumonia, versus CHF, COVID/influenza/viral, atypical pneumonia, other. Chest x-ray shows bibasilar infiltrates, blood cultures. IV ceftriaxone, oral azithromycin. SVN given, still on oxygen, no wheezes heard. Respiratory panel negative. Consider admission. Discussed admission with patient, history of prior Against Medical Advice discharge, he says that he is willing to stay for admission ?to do whatever has to be done to get better.? Will contact hospitalist [id number], case discussed with hospitalist Dr. Mary, accepts patient for admission to observation Critical Care Time Critical Care Time Critical Care Time: Yes Total Critical Care Time: 35 Attestation: The high probability of a clinically significant, sudden or life threatening deterioration of the [cardiopulmonary] system(s) required my full and direct attention, intervention and personal management. The aggregate critical care time was [35] minutes. This time is in addition to time spent performing reported procedures but includes the following: [x] Data Review and interpretation [x] Patient assessment and monitoring of vital signs [x] Documentation [x] Medication orders and management Discharge Plan Departure Patient Disposition: Admitted as Observation Clinical Impression: Pneumonia, Hypoxia Admit Date/Time: 04/15/24 10:27 Admit Provider: Vipin Mary
[2024-04-15] MEDS: ALBUTEROL 2.5 MG/3 ML NEB (ADULT) INH (09:07)
[2024-04-15 09:17] LABS: Alanine Aminotransferase 13 IU/L (<50); Albumin 2.9 g/dL (3.5-5.0); Albumin Globulin Ratio 0.5 (1.0-2.8); Alkaline Phosphatase 147 U/L (38-126); Aspartate Aminotransferase 21 IU/L (17-59); BUN Creatinine Ratio 21.1 (6-22); Bilirubin Total 0.3 mg/dL (0.2-1.3); Blood Urea Nitrogen 12 mg/dL (9-20); Carbon Dioxide 33 mmol/L (22-32); Chloride 97 mmol/L (98-107); Creatine Kinase 48 U/L (55-170); Estimated Glomerular Filt Rate > 60 mL/min (>60); Globulin 5.5 g/dL (1.7-4.1); Glucose 99 mg/dL (70-100); Lipase 18 U/L (23-300); Potassium 3.7 mmol/L (3.4-5.1); Sodium 132 mmol/L (137-145); Total Protein 8.4 g/dL (6.3-8.2)
[2024-04-15 09:18] LABS: Ethanol (ETOH) < 10 mg/dL
[2024-04-15 09:29] LABS: Troponin I < 0.012 ng/mL (0.01-0.034)
[2024-04-15] MEDS: cefTRIAXone 1,000 MG in SODIUM CHLORIDE 0.9% 100 ML 200 MG IV (09:31)
[2024-04-15] MEDS: AZITHROMYCIN 250 MG TABLET 500 MG PO (09:31)
[2024-04-15 09:33] LABS: HEMOLYSIS < 15 (0-50)
[2024-04-15 10:25] LABS: Adenovirus Not Detected (Not Detect); B. parapertussis Not Detected (Not Detecte); Bordetella pertussis Not Detected (Not Detect); Chlamydophila pneumoniae Not Detected (Not Detect); Coronavirus 229E Not Detected (Not Detect); Coronavirus HKU1 Not Detected (Not Detect); Coronavirus NL 63 Not Detected (Not Detect); Coronavirus OC43 Not Detected (Not Detect); Human Metapneumovirus Not Detected (Not Detect); Human Rhinovirus/Enterovirus Not Detected (Not Detect); Influenza A Not Detected (Not Detect); Influenza B Not Detected (Not Detect); Mycoplasma pneumoniae Not Detected (Not Detect); Parainfluenza Virus 1 Not Detected (Not Detect); Parainfluenza Virus 2 Not Detected (Not Detect); Parainfluenza Virus 3 Not Detected (Not Detect); Parainfluenza Virus 4 Not Detected (Not Detect); Respiratory Syncytial Virus Not Detected (Not Detect); SARS- CoV-2 Not Detected (Not Detecte)
--- NOTE | 2024-04-15 11:22 | PC.NURSE ---
Pt reports noncompliance with antibiotics for pneumonia. Pt was found to be hypoxic and tachycardiac at outpatient clinic. Pt denies cp. Pt denies any symptoms.
[2024-04-15] MEDS: SODIUM CHLORIDE 0.9% 1,000 ML 100 ML IV ×2 (11:42→19:41)
--- NOTE | 2024-04-15 11:42 | PC.NURSE ---
report called by FIORELLA Turk
--- NOTE | 2024-04-15 13:15 | PM.HP.1 ---
History of Present Illness History of Present Illness Date Patient Seen: 04/15/24 Time Patient Seen: 13:00 Chief complaint: Low oxygen, high heart rate Narrative: The patient was a 48-year-old male with a history of heroin use as well as possible street methadone use. He presents smear today. He was hypoxic in clinic and sent to the emergency department. His sats were 82% on room air. He has had a cough, for an unclear period of time. He was quite vague. He denies heroin use. He did admit to recent methadone use to the pharmacist. Currently not enrolled in the Suboxone or methadone clinic but is trying to get in. He was given antibiotics about a week ago, and took about 3 days of amoxicillin for possible URI. He denies any chest pain. He also denies any nausea, or vomiting. No recent diarrhea. He was quite cachectic and notes that he lives in [place] and admits to weight loss. He denies fevers or chills. ED course: He was given IV antibiotics for cap, and a chest x-ray and CT PE revealed bibasilar infiltrates. [facility] Social History household members: friend(s) Smoking Status: Smoker, status unknown alcohol intake: current Meds Home Medications and Allergies Home Medications Medication Instructions Recorded Confirmed Type No Known Home Medications 04/15/24 04/15/24 History Allergies Allergy/AdvReac Type Severity Reaction Status Date / Time No Known Drug Allergies Allergy Verified 12/17/23 21:47 Review of Systems Review of Systems Narrative: All else reviewed and otherwise unremarkable except as noted in the history and physical. Exam Vital Signs (past 8 hours): - 04/15/24 08:42 04/15/24 08:44 04/15/24 08:44 Temperature 98.9 F Pulse Rate 107 H 109 H Respiratory Rate 22 20 Blood Pressure 111/72 111/72 Pulse Oximetry 89 L 87 L Oxygen Delivery Method Nasal Cannula Room Air Oxygen Flow Rate 04/15/24 08:44 04/15/24 09:00 04/15/24 09:00 Temperature Pulse Rate 102 H 102 H Respiratory Rate 19 21 Blood Pressure 110/67 Pulse Oximetry 94 96 Oxygen Delivery Method Nasal Cannula Nasal Cannula Oxygen Flow Rate 2 2 04/15/24 09:08 04/15/24 09:30 04/15/24 09:30 Temperature Pulse Rate 99 H 93 H Respiratory Rate 20 20 Blood Pressure 121/79 Pulse Oximetry 94 95 Oxygen Delivery Method Nasal Cannula Room Air Oxygen Flow Rate 04/15/24 10:00 04/15/24 10:00 04/15/24 10:30 Temperature Pulse Rate 93 H Respiratory Rate 29 H Blood Pressure 114/68 107/67 Pulse Oximetry 93 Oxygen Delivery Method Nasal Cannula Oxygen Flow Rate 04/15/24 10:30 04/15/24 11:00 04/15/24 11:00 Temperature Pulse Rate 95 H 95 H Respiratory Rate 27 H 19 Blood Pressure 105/70 Pulse Oximetry 92 90 L Oxygen Delivery Method Nasal Cannula Nasal Cannula Oxygen Flow Rate 04/15/24 11:30 Temperature 97.8 F Pulse Rate 92 H Respiratory Rate 16 Blood Pressure 101/63 Pulse Oximetry 94 Oxygen Delivery Method Oxygen Flow Rate 2 Oxygen Delivery Method Nasal Cannula Oxygen Flow Rate 2 Narrative Exam Narrative: NAD, alert and oriented, soft speech, calm. He was cachectic, and chronically ill in appearance. Normocephalic skull, EOMI, anicteric sclera, symmetric pupils. Facial wasting. Oropharynx unremarkable, no droop. Neck supple, midline trachea, no adenopathy. Lungs are notable for globally diminished breath sounds with rhonchi in all quadrants, normal rate and effort. Heart regular, no murmur gallop or rub. Abdomen is soft, non distended and non tender. Extremities are free of edema. Skin is free of rash or lesions. Joints are not swollen or deformed. Judgment appears to be abnormal. Objective ECG Impression: Right ventricular hypertrophy with repolarization abnormality Nonspecific T wave abnormality Imaging Multiple studies:: Radiologist's impression: Chest x-ray: Bibasilar consolidation, similar to previous. Unchanged cardiomegaly. CT PE: -No evidence of pulmonary embolism, aortic dissection or aneurysm. -Bilateral dependent consolidation with infiltrate associated with a bronchiectasis. Additional interstitial tree-in-bud pattern noted anteriorly with relative sparing of Labs 04/15/24 08:47 04/15/24 08:47 Labs: Laboratory Results - last 24 hr 04/15/24 04/15/24 04/15/24 08:47 08:49 09:20 WBC 13.4 H RBC 4.02 L Hgb 9.2 L Hct 30.0 L MCV 74.5 L MCH 22.8 L MCHC 30.6 RDW 19.6 H Plt Count 523 H Neut % (Auto) 72.8 Lymph % (Auto) 18.0 L [place] % (Auto) 7.3 Eos % (Auto) 1.3 L Baso % (Auto) 0.6 Neut # (Auto) 9800 H Lymph # (Auto) 2400 [place] # (Auto) 1000 H Eos # (Auto) 200 Baso # (Auto) 100 Sodium 132 L Potassium 3.7 Chloride 97 L Carbon Dioxide 33 H BUN 12 Creatinine 0.57 L Estimated GFR > 60 BUN/Creatinine Ratio 21.1 Glucose 99 Lactate 1.0 Calcium 8.0 L Total Bilirubin 0.3 AST 21 ALT 13 Alkaline Phosphatase 147 H Total Creatine Kinase 48 L Troponin I < 0.012 Total Protein 8.4 H Albumin 2.9 L Globulin 5.5 H Albumin/Globulin Ratio 0.5 L Lipase 18 L Ethyl Alcohol < 10 Chlamy pneumoniae PCR Not detected Adenovirus (PCR) Not detected B.parapertussis DNA PCR Not detected Coronavirus OC43 (PCR) Not detected Coronavirus HKU1 (PCR) Not detected Coronavirus 229E (PCR) Not detected SARS-CoV-2 (PCR) Not detected Coronavirus NL63 (PCR) Not detected Human Metapneumovir PCR Not detected Influenza Type A (PCR) Not detected Influenza Type B (PCR) Not detected M. pneumoniae (PCR) Not detected Parainfluenza 1 (PCR) Not detected Parainfluenza 2 (PCR) Not detected Parainfluenza 3 (PCR) Not detected Parainfluenza 4 (PCR) Not detected RSV (PCR) Not detected Entero/Rhino (PCR) Not detected Assessment & Plan Assessment & Plan narrative: 1. Community-acquired pneumonia, present on admission and active. 2. Continuous opiate dependence with heroin and methadone, present on admission and active. 3. Acute hypoxic respiratory failure, present on admission and active. 4. Chronic microcytic anemia, present on admission and stable. 5. History of methamphetamine abuse. 6. Echo 12/31: Normal LV with EF of 55%. Flat septum consistent with right ventricular volume overload condition. Right atrium is severely dilated. PLAN: -we will treat with antibiotics for pneumonia for 3-5 days. -wean oxygen as able. -the patient was infiltrates may be chronic and his echo findings are consistent with a chronic pulmonary condition versus pulmonary hypertension. -methadone 10 mg t.i.d. to prevent withdrawal while in the hospital. He is full resuscitation. Observation status, anticipate a 1 midnight length of stay. The patient has a history of frequent Against Medical Advice discharges. Time-Based Coding :: 40 min spent with patient and on the chart (including review of chart, obtaining history, exam, reviewing outside data, placing orders, documenting exam and treatment plan, and counseling patient) on 04/15. Quality VTE Deep Vein Thrombosis/Pulmonary Embolism Present on Admission: No MIPS - Admit I confirm the patient?s Advance Care Plan is present, Code status is documented, Surrogate decision maker is in patient?s record [If Yes, STOP here]: Yes MIPS - Meds 'Current medications' to include all prescriptions, [id number] products, herbals, cannabis/cannabidiol products, and vitamin/mineral/dietary (nutritional) supplements. I have utilized all available resources to obtain, update, or review the patient?s current medications. [If Yes, STOP here]: Yes
[2024-04-15 13:46] LABS: Ur Creatinine Normal (Normal); Ur Specific Gravity Normal (Normal); Urine Methadone Positive (Negative); Urine Methamphetamines Positive (Negative); Urine Tetrahydrocannabinol Negative (Negative); Urine pH Normal (Normal)
[2024-04-15 13:49] LABS: UR Morphine/Opiate cutoff 300 Negative (Negative); Urine Amphetamines Negative (Negative); Urine Cocaine Negative (Negative)
[2024-04-15 13:50] LABS: Urine Barbiturates Negative (Negative); Urine Benzodiazepines Negative (Negative); Urine MDMA Negative (Negative); Urine Oxycodone Negative (Negative); Urine Phencyclidine Negative (Negative); Urine Tricyclic Antidepressant Negative (Negative)
[2024-04-15] MEDS: METHADONE 10 MG TABLET PO ×2 (15:21→20:43)
--- NOTE | 2024-04-15 17:38 | PM.DS.1 ---
History of Present Illness History of Present Illness Chief complaint: Low oxygen, high heart rate Narrative: The patient was a 48-year-old male with a history of heroin use as well as possible street methadone use. He presents smear today. He was hypoxic in clinic and sent to the emergency department. His sats were 82% on room air. He has had a cough, for an unclear period of time. He was quite vague. He denies heroin use. He did admit to recent methadone use to the pharmacist. Currently not enrolled in the Suboxone or methadone clinic but is trying to get in. He was given antibiotics about a week ago, and took about 3 days of amoxicillin for possible URI. He denies any chest pain. He also denies any nausea, or vomiting. No recent diarrhea. He was quite cachectic and notes that he lives in [place] and admits to weight loss. He denies fevers or chills. ED course: He was given IV antibiotics for cap, and a chest x-ray and CT PE revealed bibasilar infiltrates. Discharge Providers Provider Date of admission: 04/15/24 10:27 Discharge provider: Vipin Mary MD Exam Vital Signs (past 8 hours): - 04/15/24 10:00 04/15/24 10:00 04/15/24 10:30 Temperature Pulse Rate 93 H Respiratory Rate 29 H Blood Pressure 114/68 107/67 Pulse Oximetry 93 Oxygen Delivery Method Nasal Cannula Oxygen Flow Rate 04/15/24 10:30 04/15/24 11:00 04/15/24 11:00 Temperature Pulse Rate 95 H 95 H Respiratory Rate 27 H 19 Blood Pressure 105/70 Pulse Oximetry 92 90 L Oxygen Delivery Method Nasal Cannula Nasal Cannula Oxygen Flow Rate 04/15/24 11:30 04/15/24 16:00 Temperature 97.8 F 97.8 F Pulse Rate 92 H 98 H Respiratory Rate 16 16 Blood Pressure 101/63 100/59 L Pulse Oximetry 94 94 Oxygen Delivery Method Oxygen Flow Rate 2 Oxygen Delivery Method Nasal Cannula Oxygen Flow Rate 2 Objective Labs 04/15/24 08:47 04/15/24 08:47 Labs: Laboratory Results - last 24 hr 04/15/24 04/15/24 04/15/24 08:47 08:49 09:20 WBC 13.4 H RBC 4.02 L Hgb 9.2 L Hct 30.0 L MCV 74.5 L MCH 22.8 L MCHC 30.6 RDW 19.6 H Plt Count 523 H Neut % (Auto) 72.8 Lymph % (Auto) 18.0 L [place] % (Auto) 7.3 Eos % (Auto) 1.3 L Baso % (Auto) 0.6 Neut # (Auto) 9800 H Lymph # (Auto) 2400 [place] # (Auto) 1000 H Eos # (Auto) 200 Baso # (Auto) 100 Sodium 132 L Potassium 3.7 Chloride 97 L Carbon Dioxide 33 H BUN 12 Creatinine 0.57 L Estimated GFR > 60 BUN/Creatinine Ratio 21.1 Glucose 99 Lactate 1.0 Calcium 8.0 L Total Bilirubin 0.3 AST 21 ALT 13 Alkaline Phosphatase 147 H Total Creatine Kinase 48 L Troponin I < 0.012 Total Protein 8.4 H Albumin 2.9 L Globulin 5.5 H Albumin/Globulin Ratio 0.5 L Lipase 18 L U Opiates 300ng/mL cut Ur Oxycodone Screen Urine Methadone Screen Ur Barbiturates Screen U Tricyclic Antidepress Ur Phencyclidine Scrn Ur Amphetamines Screen U Methamphetamines Scrn Ur MDMA Scrn (Ecstasy) U Benzodiazepines Scrn Urine Cocaine Screen U Marijuana (THC) Screen Urine pH Urine Specific [place] Ethyl Alcohol < 10 Ur Creatinine Chlamy pneumoniae PCR Not detected Adenovirus (PCR) Not detected B.parapertussis DNA PCR Not detected Coronavirus OC43 (PCR) Not detected Coronavirus HKU1 (PCR) Not detected Coronavirus 229E (PCR) Not detected SARS-CoV-2 (PCR) Not detected Coronavirus NL63 (PCR) Not detected Human Metapneumovir PCR Not detected Influenza Type A (PCR) Not detected Influenza Type B (PCR) Not detected M. pneumoniae (PCR) Not detected Parainfluenza 1 (PCR) Not detected Parainfluenza 2 (PCR) Not detected Parainfluenza 3 (PCR) Not detected Parainfluenza 4 (PCR) Not detected RSV (PCR) Not detected Entero/Rhino (PCR) Not detected 04/15/24 12:20 WBC RBC Hgb Hct MCV MCH MCHC RDW Plt Count Neut % (Auto) Lymph % (Auto) [place] % (Auto) Eos % (Auto) Baso % (Auto) Neut # (Auto) Lymph # (Auto) [place] # (Auto) Eos # (Auto) Baso # (Auto) Sodium Potassium Chloride Carbon Dioxide BUN Creatinine Estimated GFR BUN/Creatinine Ratio Glucose Lactate Calcium Total Bilirubin AST ALT Alkaline Phosphatase Total Creatine Kinase Troponin I Total Protein Albumin Globulin Albumin/Globulin Ratio Lipase U Opiates 300ng/mL cut Negative Ur Oxycodone Screen Negative Urine Methadone Screen Positive H Ur Barbiturates Screen Negative U Tricyclic Antidepress Negative Ur Phencyclidine Scrn Negative Ur Amphetamines Screen Negative U Methamphetamines Scrn Positive H Ur MDMA Scrn (Ecstasy) Negative U Benzodiazepines Scrn Negative Urine Cocaine Screen Negative U Marijuana (THC) Screen Negative Urine pH Normal Urine Specific [place] Normal Ethyl Alcohol Ur Creatinine Normal Chlamy pneumoniae PCR Adenovirus (PCR) B.parapertussis DNA PCR Coronavirus OC43 (PCR) Coronavirus HKU1 (PCR) Coronavirus 229E (PCR) SARS-CoV-2 (PCR) Coronavirus NL63 (PCR) Human Metapneumovir PCR Influenza Type A (PCR) Influenza Type B (PCR) M. pneumoniae (PCR) Parainfluenza 1 (PCR) Parainfluenza 2 (PCR) Parainfluenza 3 (PCR) Parainfluenza 4 (PCR) RSV (PCR) Entero/Rhino (PCR) [facility] Social History household members: friend(s) Smoking Status: Smoker, status unknown alcohol intake: current Discharge Plan Discharge Plan Patient Disposition: Home Discharge orders & Medications Prescriptions: No Action No Known Home Medications Visit Report/Discharge Packet Stand Alone Forms: Patient Portal/API, Stroke Signs & Symptoms Discharge Data Attending Provider: Vipin Mary Admit Date/Time: 04/15/24 10:27 Quality VTE Deep Vein Thrombosis/Pulmonary Embolism Present on Admission: No
--- NOTE | 2024-04-15 17:49 | PC.NURSE ---
Pt resting at intervals. A/O IVF NS infusing at 100cc/hr as per orders w/o incidence. Pt receiving methadone as per orders. Call light w/in reach, pt calls appropriately for needs. Continue w/plan of care.
[2024-04-15] MEDS: HEPARIN 5,000 UNIT/ML VIAL 5000 UNIT SUBCUT (20:43)
[2024-04-16] VITALS (8 sets, daily range): BP systolic 94–106; BP diastolic 58–71; PULSE 78–102; RESP 16–20; TEMP 36.3–37.2; O2SAT 93–97
[2024-04-16 05:36] LABS: Add Manual Diff / Slide Review NO; Basophils Absolute Auto 100 /uL (0-100); Basophils Percent Auto 0.5 % (0-2); Eosinophils Absolute Auto 500 /uL (0-450); Eosinophils Percent Auto 5.2 % (2-4); Hematocrit 28.6 % (41-53); Hemoglobin 8.9 g/dL (13.5-17.5); Lymphocytes Absolute Auto 3000 /uL (1100-4500); Lymphocytes Percent Auto 28.1 % (25-40); Mean Corpuscular HGB Conc 31.1 % (30-36); Mean Corpuscular Hemoglobin 23.4 PG (26-34); Mean Corpuscular Volume 75.1 fL (80-100); Monocytes Absolute Auto 700 /uL (0-900); Monocytes Percent Auto 6.7 % (3-14); Neutrophils Absolute Auto 6200 /uL (1500-7000); Neutrophils Percent Auto 59.5 % (50-75); Platelet Count 433 X10^3/uL (150-400); Red Cell Distribution Width 19.7 % (11.6-14.8); White Blood Cell Count 10.5 X10^3/uL (4.5-11.0)
[2024-04-16 05:48] LABS: BUN Creatinine Ratio 15.6 (6-22); Blood Urea Nitrogen 7 mg/dL (9-20); Calcium 7.7 mg/dL (8.4-10.2); Carbon Dioxide 31 mmol/L (22-32); Chloride 102 mmol/L (98-107); Estimated Glomerular Filt Rate > 60 mL/min (>60); Glucose 95 mg/dL (70-100); HEMOLYSIS < 15 (0-50); Potassium 3.9 mmol/L (3.4-5.1); Sodium 135 mmol/L (137-145)
[2024-04-16] MEDS: SODIUM CHLORIDE 0.9% 1,000 ML 100 ML IV (06:10)
[2024-04-16] MEDS: METHADONE 10 MG TABLET PO ×2 (08:44→14:22)
[2024-04-16] MEDS: HEPARIN 5,000 UNIT/ML VIAL 5000 UNIT SUBCUT (08:44)
[2024-04-16] MEDS: cefTRIAXone 2,000 MG in SODIUM CHLORIDE 0.9% 100 ML 200 MG IV (08:45)
[2024-04-16] MEDS: predniSONE 20 MG TABLET 40 MG PO (10:37)
[2024-04-16] MEDS: DOXYCYCLINE 100 MG in SODIUM CHLORIDE 0.9% 100 ML IV (10:42)
--- NOTE | 2024-04-16 11:29 | CM.DANOTE ---
Initial DCP Assessment Visit Note Reviewed EMR and team rounds for status updates. 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 Pt lives independently [place] in [place] with friends. He states that he does not have transportation for the ride home. DCP will need to assist with discussing options prior to home d/c. Payor: None. Self-Pay. No PCP Pt is a 48 year-old M with a hx of heroin smoking use and recent pneumonia. He had only taken his antibiotic for 2-days. Was seen at the Suboxone clinic and was found to be short of breath with a rapid heartbeat, he was there considering a new consultation in order to become a patient. He acknowledges several days of non-prescribed methadone use of unknown amounts. In the ED, he was found to have a rapid heartbeat and SOB, cough, low O2. Chest x-ray showed continued pneumonia. He was started on IV antibiotics, placed on O2, and admitted for further eval and tx. He is receiving methadone since admit, however it is needing to be titrated, so pt is having active withdrawl sx demonstrated by shaking, anxiousness, difficulty sleeping, discomfort. DCP will continue to monitor and assist with d/c assistance and resource needs. Discharge Planning/Care Management CM Discharge Assessment Start: 04/16/24 11:25 Freq: Status: Active Protocol: Document 04/16/24 11:25 DPL (Rec: 04/16/24 11:29 DPL [id number]) Discharge Planning Assessment Assigned Credit Products Officer SHILO Perez Advance Directives? No History Provided By Patient,Medical Record Has Patient been admitted in last 30 No days? Prior Living Arrangements Mobile home Household Members friend(s) Type of transporation used prior to Relies on Others admit Independent with ADL's Yes Is patient alert and oriented? Yes Caregiver for Another No Comment N/A Comment N/A Comment Pt is wanting to be seen as a new consult at the Suboxone clinic. Barriers to Discharge No Discharge Plan Home Referrals Initiated None needed Whiteboard Updated in Patient Room with Yes name and ext. # of Credit Products Officer Review Status In Process Please Provide Date Initial DC 04/16/24 Assessment Was Performed
--- NOTE | 2024-04-16 13:13 | PM.PN.1 ---
Subjective Subjective Interval history: 48 M admitted with respiratory failure with hypoxia, presumed secondary to pneumonia. Still hypoxic today, desaturations noted to 88% on room air. He feels better from withdrawal today, but still a bit diaphoretic and ill appearing. He is on methadone today. Exam Vital Signs (past 8 hours): - 04/16/24 08:00 04/16/24 08:32 04/16/24 12:00 Temperature 97.8 F Pulse Rate 78 Respiratory Rate 16 20 Blood Pressure 106/71 Pulse Oximetry 97 93 Oxygen Delivery Method Nasal Cannula Oxygen Flow Rate 2 2 Oxygen Delivery Method Nasal Cannula Oxygen Flow Rate 2 Narrative Exam Narrative: Gen: thin male, mildly acute on chronic ill appearance, slight diaphoresis, quiet CV: RRR no m/r/g pulm: no wheezing rhonchi or rales Abd: S NT ND Ext: No edema Objective Labs 04/16/24 05:28 04/16/24 05:28 Labs: Laboratory Results - last 24 hr 04/15/24 04/16/24 12:20 05:28 WBC 10.5 RBC 3.80 L Hgb 8.9 L Hct 28.6 L MCV 75.1 L MCH 23.4 L MCHC 31.1 RDW 19.7 H Plt Count 433 H Neut % (Auto) 59.5 Lymph % (Auto) 28.1 [place] % (Auto) 6.7 Eos % (Auto) 5.2 H Baso % (Auto) 0.5 Neut # (Auto) 6200 Lymph # (Auto) 3000 [place] # (Auto) 700 Eos # (Auto) 500 H Baso # (Auto) 100 Sodium 135 L Potassium 3.9 Chloride 102 Carbon Dioxide 31 BUN 7 L Creatinine 0.45 L Estimated GFR > 60 BUN/Creatinine Ratio 15.6 Glucose 95 Calcium 7.7 L U Opiates 300ng/mL cut Negative Ur Oxycodone Screen Negative Urine Methadone Screen Positive H Ur Barbiturates Screen Negative U Tricyclic Antidepress Negative Ur Phencyclidine Scrn Negative Ur Amphetamines Screen Negative U Methamphetamines Scrn Positive H Ur MDMA Scrn (Ecstasy) Negative U Benzodiazepines Scrn Negative Urine Cocaine Screen Negative U Marijuana (THC) Screen Negative Urine pH Normal Urine Specific [place] Normal Ur Creatinine Normal PFSH Social History household members: friend(s) Smoking Status: Smoker, status unknown alcohol intake: current Assessment & Plan Assessment & Plan narrative: 1. Community-acquired pneumonia, present on admission and active. 2. Continuous opiate dependence with heroin and methadone, with opiate withdrawal, present on admission and active. 3. Acute hypoxic respiratory failure, present on admission and active. 4. Chronic microcytic anemia, present on admission and stable. 5. History of methamphetamine abuse. 6. Echo 12/31: Normal LV with EF of 55%. Flat septum consistent with right ventricular volume overload condition. Right atrium is severely dilated. 7. Possible bronchiectasis, chronic lung disease PLAN: -we will treat with antibiotics for pneumonia for 3-5 days. Continue today with ceftriaxone and doxycycline -wean oxygen as able. -the patient was infiltrates may be chronic and his echo findings are consistent with a chronic pulmonary condition versus pulmonary hypertension. Will trial steroids for possible excipient lung disease (from drug abuse) vs bronchiectasis vs other ILD. -methadone 10 mg t.i.d. to help with withdrawal while still in the hospital, may need increased dose will continue to monitor - He is full resuscitation. Inpatient, continue above measures. Can discharge home once hypoxia improved. Time-Based Coding :: [TOTAL MINUTES] spent with patient and on the chart (including review of chart, obtaining history, exam, reviewing outside data, placing orders, documenting exam and treatment plan, and counseling patient) on [DATE]. Quality VTE Deep Vein Thrombosis/Pulmonary Embolism Present on Admission: No
--- NOTE | 2024-04-16 15:39 | PC.NURSE ---
Addendum entered by Marylin Ivy R.N. 04/16/24 18:45: Pt received D/C orders. Oked to transport home via [employer]. Given home instructions w/ understanding Pt escorted via [facility] to [facility] in stable st[place]. Original Note: Pt resting @ intervals throughout day. O2 at 2L. Bilateral faint crackles noted T/O. Receiving methadone as per orders. IVF now HL Call light w/in reach. Bed alarm on for pt safety. Continue w/plan of care.
--- NOTE | 2024-04-16 18:00 | P.DS_ITS ---
History of Present Illness History of Present Illness Date Patient Seen: 04/16/24 Time Patient Seen: 18:01 Chief complaint: Low oxygen, high heart rate Narrative: The patient was a 48-year-old male with a history of heroin use as well as possible street methadone use. He presents smear today. He was hypoxic in clinic and sent to the emergency department. His sats were 82% on room air. He has had a cough, for an unclear period of time. He was quite vague. He denies heroin use. He did admit to recent methadone use to the pharmacist. Currently not enrolled in the Suboxone or methadone clinic but is trying to get in. He was given antibiotics about a week ago, and took about 3 days of amoxicillin for possible URI. He denies any chest pain. He also denies any nausea, or vomiting. No recent diarrhea. He was quite cachectic and notes that he lives in [place] and admits to weight loss. He denies fevers or chills. ED course: He was given IV antibiotics for cap, and a chest x-ray and CT PE revealed bibasilar infiltrates. Discharge Providers Provider Date of admission: 04/15/24 10:27 Discharge Date: 04/16/24 Consults: 04/16/24 06:28 Consult to Dietitian, Adult Routine Comment: Reason For Exam: low bmi Consult to ASSISTANT DEAN - Check And Transfer Beader Routine Comment: Check And Transfer Beader Consult needed for:: Substance abuse Discharge provider: Dada Mancilla DO Summary Hospital Course Discharge Diagnosis: 1. Acute, possibly on chronic, respiratory failure with hypoxia 2. Bacterial pneumonia 3. Probable bronchiectasis or other unknown chronic lung disease with probable exacerbation 4. Opiate dependence 5. Chronic anemia, stable. Hospital Course: This is a 48 year old male with opiate dependence who was admitted for presumed pneumonia and hypoxic respiratory failure. He developed evidence of opiate withdrawal, and was started on methadone. He was sent in from methadone clinic for low oxygen. He was given antibiotics, the following day / morning he was still mildly hypoxic, given appearance of his CT with probable chronic lung disease he was started on prednisone. Later on that day, patient reported that he wanted to leave AMA. At that time as well, he then reported that he had oxygen at home, though I cannot find any outside records indicating such. He, nonetheless, was no longer hypoxic, saturation 93-94% on room air and felt improved. He was discharged home. I did sent him antibiotics for presumed pnuemonia, as well as another 4 days of prednisone on discharge. He should follow up with primary care and recommend pulmonary follow up if he is indeed chronically hypoxic. I also recommend continued follow up with methadone clinic for opiate dependence. Time Spent with Patient Time spent: Greater than 30 minutes Exam Vital Signs (past 8 hours): - 04/16/24 12:00 04/16/24 13:00 04/16/24 17:00 Temperature 97.3 F L Pulse Rate 94 H Respiratory Rate 20 16 18 Blood Pressure 95/59 L Pulse Oximetry 96 Oxygen Flow Rate 4 04/16/24 17:27 Temperature 98.9 F Pulse Rate 102 H Respiratory Rate 16 Blood Pressure 103/58 L Pulse Oximetry 93 Oxygen Flow Rate 2 Oxygen Delivery Method Nasal Cannula Oxygen Flow Rate 2 Narrative Exam Narrative: Gen: chronically ill appearing, no acute distress, malnourished CV: RRR no m/r/g Pulm: poor effort, but no wheezing, rhonchi rales. Abd: S NT ND Ext: No edema, joint effusions Neuro: alert, oriented to person, place, time. Objective Labs 04/16/24 05:28 04/16/24 05:28 Labs: Laboratory Results - last 24 hr 04/16/24 05:28 WBC 10.5 RBC 3.80 L Hgb 8.9 L Hct 28.6 L MCV 75.1 L MCH 23.4 L MCHC 31.1 RDW 19.7 H Plt Count 433 H Neut % (Auto) 59.5 Lymph % (Auto) 28.1 [place] % (Auto) 6.7 Eos % (Auto) 5.2 H Baso % (Auto) 0.5 Neut # (Auto) 6200 Lymph # (Auto) 3000 [place] # (Auto) 700 Eos # (Auto) 500 H Baso # (Auto) 100 Sodium 135 L Potassium 3.9 Chloride 102 Carbon Dioxide 31 BUN 7 L Creatinine 0.45 L Estimated GFR > 60 BUN/Creatinine Ratio 15.6 Glucose 95 Calcium 7.7 L PFSH Social History household members: friend(s) Smoking Status: Smoker, status unknown alcohol intake: current Discharge Plan Discharge Plan Patient Disposition: Home Provider Discharge Comment: You were admitted to the hospital with low oxygen. Improved with steroids and antibiotics. Unclear if this was due to chronic lung disease or acute pneumonia. Continue antibiotics and steroids. Continue to seek care from the methadone clinic. Discharge orders & Medications Prescriptions: New amoxicillin-pot clavulanate 875-125 mg tablet 1 tab PO BID 5 Days Qty: 10 0RF prednisone 20 mg tablet 40 mg PO DAILY 4 Days Qty: 8 0RF Diet/Activity/Treatments Diet: Diet as Tolerated and Regular Activity: As tolerated, no restrictions. Visit Report/Discharge Packet Stand Alone Forms: Patient Portal/API, Stroke Signs & Symptoms Discharge Data Attending Provider: Vipin Mary Admit Date/Time: 04/15/24 10:27 Quality VTE Deep Vein Thrombosis/Pulmonary Embolism Present on Admission: No
== END 2024-04-16 18:45 | disposition home or self-care (01) | DRG 193 ==
LOC: ED 08:44 → AC 10:28
PROVIDERS: Admitting Provider Hospitalist; Emergency Provider Emergency Medicine; Referring Provider Emergency Medicine; Visit Provider Hospitalist
DX: J18.9 Pneumonia, unspecified organism (principal); J96.21 Acute and chronic respiratory failure with hypoxia; J47.1 Bronchiectasis with (acute) exacerbation; F11.23 Opioid dependence with withdrawal; D50.8 Other iron deficiency anemias; F15.11 Other stimulant abuse, in remission; J15.9 Unspecified bacterial pneumonia
CPT/HCPCS: 36415; 71045; 80048; 80053; 80305; 80320; 82550; 83605; 83690; 84484; 85025; 87040; 87633; 93005; 94640; 96365; 99285; G0378; J0696; J1644; J7613